=== PATIENT | female | born 1975 | race Caucasian/White ===

== ENCOUNTER 2017-10-28 13:27 | Inpatient (IN) | payer SELFPAY ==
[~2017-10-28] VITALS: Ht 175.3 cm; Wt 108.4 kg
[2017-10-28 13:31] VITALS: BP 206/112
--- NOTE | 2017-10-28 13:41 | NUR ---
PT AMBULATED TO BED 1.
--- NOTE | 2017-10-28 13:45 | NUR ---
41F BIB STEP MOM C/O NON PRODUCTIVE COUGH, MID-ANTERIOR CHEST PAIN, HEADACHE AND MID BACK PAIN X LAST NIGHT. HX: HTN. PT STATED QUIT SMOKING 1 MO & DID NOT TAKE ANY MED FOR HTN X 5 YEARS.DENIES N/V/D; SKIN IS PINK/WARM/DRY; AAOX4 WITH EVEN AND STEADY GAIT; LUNGS CLEAR BL; HR EVEN AND REGULAR; PT DENIES ANY FEVER, CP, SOB, OR COUGH AT THIS TIME; PATIENT STATES PAIN OF 9/10 AT THIS TIME. PATIENT POSITIONED FOR COMFORT; HOB ELEVATED; BEDRAILS UP X2; BED DOWN. ER MD MADE AWARE OF PT STATUS.
[2017-10-28] MEDS ORDERED: ASPIRIN 325 MG TAB PO ONE (14:15)
[2017-10-28] MEDS ORDERED: hydrALAZINE 20 MG/ML VIAL IVP ONE (14:15)
[2017-10-28] MEDS ORDERED: IBUPROFEN 800 MG TAB PO ONE (14:15)
--- NOTE | 2017-10-28 14:25 | NUR ---
LAB AT BEDSIDE.
[2017-10-28 14:42] LABS: BASOPHILS # (AUTO) 0.1 K/uL (0.00-0.22); BASOPHILS % (AUTO) 1.4 % (0.0-2.0); EOSINOPHILS # (AUTO) 0.1 K/uL (0-0.4); EOSINOPHILS % (AUTO) 0.8 % (0.0-4.0); HEMATOCRIT 25.9 % (36-48); HEMOGLOBIN 7.1 g/dL (12.0-16.0); LYMPHOCYTES % (AUTO) 27.4 % (20.5-51.1); MEAN CORPUSCULAR HEMOGLOBIN 17 pg (27-31); MEAN CORPUSCULAR HGB CONC 28 g/dL (33-37); MEAN CORPUSCULAR VOLUME 60 fL (80-94); MONOCYTES # (AUTO) 0.7 K/uL (0.8-1.0); NEUTROPHILS # (AUTO) 4.5 K/uL (1.8-7.7); NEUTROPHILS % (AUTO) 61.4 % (42.2-75.2); PLATELET COUNT (AUTO) 194 K/uL (140-450); RED BLOOD CELL COUNT(AUTO) 4.32 MIL/uL (4.20-5.40); RED CELL DISTRIBUTION WIDTH 20.7 % (11.6-13.7); WHITE BLOOD COUNT (AUTO) 7.4 K/uL (4.8-10.8)
[2017-10-28 14:47] LABS: ANION GAP 12.5 (8-16); CARBON DIOXIDE 24.5 mmol/L (21-32); CREATININE 0.8 mg/dL (0.6-1.3)
[2017-10-28 14:53] LABS: ALBUMIN 3.2 g/dL (3.4-5.0); TOTAL BILIRUBIN 0.9 mg/dL (0.0-1.0)
--- NOTE | 2017-10-28 15:12 | NUR ---
[facility] CALLED BACK TO PROVIDE ADMITTING BED.
[2017-10-28 16:00] VITALS: BP 128/89
--- NOTE | 2017-10-28 16:09 | NUR ---
Patient will be admitted to care of DR PONCE. Admited to TELE. Will go to [id number]. Belongings list completed. Report to MARY JANE LANDA.
[2017-10-28] MEDS: NACL 0.9% 1,000 ML IV SCH (16:10)
[2017-10-28] MEDS ORDERED: NITROGLYCERIN 0.4 MG TAB SL PRN (16:10)
--- NOTE | 2017-10-28 16:10 | NUR ---
RECEIVED PT REPORT FROM ER NURSE. PT IS AMB, AWAKE, ALERT, OX4. PT DENIES ANY PAIN, NAUSEA AND VOMITING AT THIS TIME. PT C/O HEADACHE. WILL ADMINISTER TYLENOL LATER. PT STATED SHE HAD SOB AND FEEL TIGHTNESS OVER THE CHEST LAST NIGHT, HOWEVER, NO COMPLAINT AT THIS TIME. UPDATED BOARD, ORIENT PT TO ROOM. CALL LIGHT WITHIN REACH. PT IS ON TELE MONITOR. IV NOTED THE THE RIGHT HAND 20G. SAFETY PRECAUTIONS MET, WILL CONTINUE TO MONITOR.
--- NOTE | 2017-10-28 16:30 | NUR ---
ASSESSMENT DONE. MEDICAL HX TAKEN.
[2017-10-28] MEDS ORDERED: LISINOPRIL 5 MG TAB PO SCH ×2 (17:15→18:40)
[2017-10-28] MEDS ORDERED: ATORVASTATIN 20 MG TAB PO SCH (17:15)
[2017-10-28] MEDS: FERROUS SULFATE 325 MG TABEC PO SCH (17:15)
[2017-10-28] MEDS ORDERED: ASCORBIC ACID 500 MG TAB PO SCH (17:15)
[2017-10-28] MEDS: ACETAMINOPHEN 325 MG TAB PO PRN (17:19)
--- NOTE | 2017-10-28 17:30 | NUR ---
SCD PLACED ON PT. PT TOLERATED WELL.
[2017-10-28 18:11] LABS: PROTHROMBIN TIME 11.7 secs (10.8-13.4)
[2017-10-28 18:13] LABS: FREE T4 (FREE THYROXINE) 0.97 ng/dL (0.76-1.46); THYROID STIMULATING HORMONE 4.91 uIU/mL (0.34-3.74)
[2017-10-28] MEDS: FERRIC GLUCONATE 125 MG in NACL 0.9% 100 ML IV SCH (18:19)
--- NOTE | 2017-10-28 19:00 | NUR ---
BP 141/73, HR 74 LISINOPRIL WAS ADMINISTERED
--- NOTE | 2017-10-28 19:30 | NUR ---
ENDORSED PT TO ASSEMBLER TRACTOR RN. PT IN STABLE CONDITION.
--- NOTE | 2017-10-28 19:31 | NUR ---
RECEIVED REPORT FROM DAY NURSE CORDELL RN, PT IN STABLE CONDITION. PT IS AAOX4, ON ROOM AIR. NO S/S OF DISTRESS NOTED. IV TO R HAND 20G, PATENT AND INTACT, INFUSING WELL. SKIN IS WARM AND DRY TO TOUCH, INTACT. RR EVEN/UNLABORED. INITIAL ASSESSMENT COMPLETED, PLAN OF CARE DISCUSSED WITH PT, VERBALIZED UNDERSTANDING. ALL SAFETY PRECAUTIONS MET, CALL LIGHT WITHIN REACH, WILL CONTINUE TO MONITOR
[2017-10-28 20:00] VITALS: BP 157/86
--- NOTE | 2017-10-28 20:15 | NUR ---
ASKED DR. JOHNS FOR SOMETHING FOR PT TO SLEEP, PT STATES SHE IS WANTING TO SLEEP BUT CAN'T.
[2017-10-28] MEDS: METOPROLOL 25 MG TAB PO SCH (20:41)
[2017-10-28] MEDS ORDERED: ZOLPIDEM 5 MG TAB PO PRN (21:00)
[2017-10-29] VITALS (8 sets, daily range): BP systolic 148–196; BP diastolic 83–113
[2017-10-29] MEDS: NACL 0.9% 1,000 ML IV SCH ×3 (02:10→23:08)
[2017-10-29 06:49] LABS: HEMATOCRIT 26.8 % (36-48); HEMOGLOBIN 7.3 g/dL (12.0-16.0); MEAN CORPUSCULAR HEMOGLOBIN 16 pg (27-31); MEAN CORPUSCULAR HGB CONC 27 g/dL (33-37); MEAN CORPUSCULAR VOLUME 61 fL (80-94); PLATELET COUNT (AUTO) 223 K/uL (140-450); RED BLOOD CELL COUNT(AUTO) 4.44 MIL/uL (4.20-5.40); RED CELL DISTRIBUTION WIDTH 21.7 % (11.6-13.7); WHITE BLOOD COUNT (AUTO) 8.5 K/uL (4.8-10.8)
[2017-10-29 07:00] LABS: ANION GAP 13.2 (8-16); CARBON DIOXIDE 23.7 mmol/L (21-32); CREATININE 0.8 mg/dL (0.6-1.3); POTASSIUM 3.9 mmol/L (3.5-5.1)
--- NOTE | 2017-10-29 07:00 | NUR ---
IV NO LONGER PATENT AND FLUSHING. NEW IV STARTED IN R FA 20G BY LAM RN, PT TOLERATED WELL, FLUSHING WELL.
[2017-10-29 07:08] LABS: EOSINOPHILS % (MANUAL) 2 % (0-4); LYMPHOCYTES % (MANUAL) 25 % (20-46); MONOCYTES % (MANUAL) 6 % (5-12)
[2017-10-29 07:27] LABS: PHOSPHORUS 3.9 mg/dL (2.5-4.9)
--- NOTE | 2017-10-29 07:33 | NUR ---
REPORT GIVEN TO DAY NURSE FOR CONTINUITY OF CARE, PT IN STABLE CONDITION. NO S/S OF DISTRESS NOTED
--- NOTE | 2017-10-29 07:34 | NUR ---
REPORT RECEIVED FROM ASSISTANT MANAGER OF OPERATIONS NURSE, PT RESTING QUIETLY IN NAD ON RA, AROUSES EASILY, SKIN WARM DRY COLOR WNL, DENIES CHEST PAIN OR SOB, C/O HANLEY, WILL GIVE TYLENOL, PLAN OF CARE REVIEWED, CALL SHANNON WITHIN REACH, SIDE RAILSUP, WILL CONTINUE TO MONITOR.
[2017-10-29] MEDS: ACETAMINOPHEN 325 MG TAB PO PRN (08:25)
[2017-10-29] MEDS: FERROUS SULFATE 325 MG TABEC PO SCH ×3 (08:26→16:22)
[2017-10-29] MEDS: ASPIRIN 81 MG TAB.CHEW PO SCH (08:26)
[2017-10-29] MEDS: DOCUSATE 100 MG/10 ML UDC PO SCH (08:26)
[2017-10-29] MEDS: ATORVASTATIN 20 MG TAB PO SCH (08:27)
[2017-10-29] MEDS: METOPROLOL 25 MG TAB PO SCH ×2 (08:27→21:18)
[2017-10-29] MEDS: ASCORBIC ACID 500 MG TAB PO SCH (08:28)
[2017-10-29] MEDS: PANTOPRAZOLE 40 MG TABEC PO SCH (08:28)
--- NOTE | 2017-10-29 08:34 | NUR ---
AM MEDS GIVEN, PT HARDEEP WELL, ALSO GIVEN TYLENOL FOR HANLEY, PT SITTING UP EATING BREAKFAST NOW, WILL CONTINUE TO MONITOR.
[2017-10-29] MEDS ORDERED: LISINOPRIL 5 MG TAB PO SCH ×2 (09:00→17:15)
[2017-10-29] MEDS ORDERED: LISINOPRIL 20 MG TAB PO SCH ×2 (09:00)
[2017-10-29] MEDS ORDERED: VENLAFAXINE 37.5 MG TAB PO SCH (09:42)
--- NOTE | 2017-10-29 10:05 | NUR ---
PT TO RADIOLOGY FOR CT.
[2017-10-29 10:12] LABS: FOLIC ACID 17.2 ng/mL (>3.0)
--- NOTE | 2017-10-29 10:43 | NUR ---
ECHO AT BEDSIDE.
--- NOTE | 2017-10-29 12:20 | NUR ---
PT SITTING UP IN BED, TALKING WITH AT BEDSIDE, RESP EVEN UNLABORED, APPEARS IN NAD, DENIES PAIN OR DISCOMFORT, WATER PROVIDED REQUESTED, DENIES ANY OTHER NEEDS, WILL CONTINUE TO MONITOR.
--- NOTE | 2017-10-29 14:50 | NUR ---
PT SITTING UP TALKING WITH VISITORS, PLAN OF CARE DISCUSSED, PT VERBALIZED FULL UNDERSTANDING, PT C/O INTERMITTENT HANLEY, BUT DECLINED OFFER OF PAIN MED, PT REMAINS ON SEARCH DIRECTOR, AT BEDSIDE WILL CONTINUE TO MONITOR.
--- NOTE | 2017-10-29 15:29 | NUR ---
PATIENT HAS BEEN SCREENED AND CATEGORIZED MODERATE NUTRITION RISK. PATIENT WILL BE SEEN WITHIN 3-5 DAYS OF ADMISSION. 10/31/17 - 11/02/[address]
[2017-10-29] MEDS: IBUPROFEN 600 MG TAB PO PRN (16:22)
--- NOTE | 2017-10-29 16:22 | NUR ---
MEDICATED FOR HANLEY WITH IBUPROFEN AT THIS TIME.
[2017-10-29] MEDS ORDERED: hydrALAZINE 20 MG/ML VIAL IVP PRN ×2 (17:35→18:45)
--- NOTE | 2017-10-29 17:40 | NUR ---
PT REPORTS HANLEY IS NOW RESOLVED, BP RECHECKED, 185/96, REPEATED WITH SAME READING, DR SAUCEDA MADE AWARE, HYDRALAZINE ONE TIME DOSE TO BE ORDERED. PT SMILING IN NAD, WILL CONTINUE TO MONITOR.
[2017-10-29] MEDS: FERRIC GLUCONATE 125 MG in NACL 0.9% 100 ML IV SCH (18:36)
[2017-10-29] MEDS ORDERED: hydrALAZINE 20 MG/ML VIAL IVP SCH (18:52)
--- NOTE | 2017-10-29 19:03 | NUR ---
IV HYDRALAZINE GIVEN FOR INCREASED BP, WILL ENDORSE TO ONCOMING SHIFT NURSE FOR BP RE-CHECK.
--- NOTE | 2017-10-29 19:22 | NUR ---
REPORT GIVEN TO POWER TRANSFORMER REPAIR SUPERVISOR NURSE, PT IN STABLE CONDITION.
--- NOTE | 2017-10-29 19:25 | NUR ---
RECEIVED PT IN STABLE CONDITION FROM AM NURSE. AWAKE,ALERT AND ORIENTED X4. AMBULATORY. ON TELE MONITOR. NO C/O ANY DISCOMFORT /PAIN AT THIS TIME. WITH IVF INFUSING WELL , FERRLECIT IV ONGOING IN RT HAND #20. CLEAR AND PATENT. PLAN OF CARE DISCUSSED AND VERBALIZED UNDERSTANDING. BED ON LOW POSITION, CALL LIGHT PLACED WITHIN EASY REACH. WILL CONTINUE TO MONITOR.
[2017-10-29] MEDS: VENLAFAXINE 37.5 MG TAB PO SCH (20:23)
[2017-10-29] MEDS ORDERED: ZOLPIDEM 5 MG TAB PO PRN (20:25)
--- NOTE | 2017-10-29 20:30 | NUR ---
BLOOD PRESSURE STILL ELEVATED AFTER THE HYDRALAZINE IVP. CALLED DR. JOHNS. MADE HIM AWARE. WILL DO SOME CHANGES ON THE ORDERS.
--- NOTE | 2017-10-29 21:20 | NUR ---
PT C/O INSOMNIA. GIVEN AMBIEN 10MG PO NEW ORDER .
--- NOTE | 2017-10-29 23:12 | NUR ---
PT IS AWAKE, SHE SAID SHE HARDLY GET SLEEP EVEN AFTER THE AMBIEN. LOOK RESTLESS. VITAL SIGNS TAKEN, BP 196/113 HR 71 WITH O2 SAT 965 ,RESP-20. AFEBRILE. DR. JOHNS MADE AWARE. WILL CHECK THE PRN MEDS FOR BP .
[2017-10-29] MEDS ORDERED: LORazepam 2 MG/ML VIAL IVP PRN (23:15)
[2017-10-29] MEDS: hydrALAZINE 20 MG/ML VIAL IVP PRN (23:40)
--- NOTE | 2017-10-30 00:40 | NUR ---
CHECKED ON PT. AWAKE, STILL ANXIOUS ALTHOUGH BP DOWN TO 162/97 HR -70. WILL MEDICATE WITH ATIVAN 1MG IVP ORDERED.
--- NOTE | 2017-10-30 01:04 | NUR ---
IV ACCESS RT FA #[id number]. INFILTRATED.SWOLLEN . DISCONTINUED. STARTED ANEW IV ACCESS ON RT HAND #22. CLEAR AND PATENT.
--- NOTE | 2017-10-30 02:20 | NUR ---
MADE ROUNDS. PT ASLEEP. NO S/S OF ANY DISCOMFORT NOTED.
[2017-10-30 04:55] VITALS: BP 172/101
--- NOTE | 2017-10-30 05:00 | NUR ---
CALLED DR. JOHNS, MADE AWARE ABOUT THE BP 172/101. HE SAID TO HOLD APRESOLINE IV . PT NO C/O PAIN. HE SAID TO RECHECKED THE BP AGAIN AFTER 15-20 MINUTES.
[2017-10-30 05:26] VITALS: BP 186/106
[2017-10-30] MEDS: hydrALAZINE 20 MG/ML VIAL IVP PRN ×2 (05:55→12:55)
--- NOTE | 2017-10-30 05:55 | NUR ---
BLOOD PRESSURE ELEVATED 186/106 ,HR -68. PRN APRESOLINE 10 MG IVP GIVEN. WILL CONTINUE TO MONITOR.
--- NOTE | 2017-10-30 06:55 | NUR ---
LATEST BP AFTER THE APRESOLINE IVP 162/77, HR -72. PT RESTING IN BED.
[2017-10-30 07:11] LABS: BASOPHILS # (AUTO) 0.2 K/uL (0.00-0.22); BASOPHILS % (AUTO) 1.9 % (0.0-2.0); EOSINOPHILS # (AUTO) 0.1 K/uL (0-0.4); EOSINOPHILS % (AUTO) 1.4 % (0.0-4.0); HEMATOCRIT 26.7 % (36-48); HEMOGLOBIN 7.4 g/dL (12.0-16.0); LYMPHOCYTES # (AUTO) 1.9 K/uL (2.5-16.5); LYMPHOCYTES % (AUTO) 17.6 % (20.5-51.1); MEAN CORPUSCULAR HEMOGLOBIN 17 pg (27-31); MEAN CORPUSCULAR HGB CONC 28 g/dL (33-37); MEAN CORPUSCULAR VOLUME 61 fL (80-94); MONOCYTES # (AUTO) 0.8 K/uL (0.8-1.0); MONOCYTES % (AUTO) 7.7 % (1.7-9.3); NEUTROPHILS # (AUTO) 7.6 K/uL (1.8-7.7); NEUTROPHILS % (AUTO) 71.4 % (42.2-75.2); PLATELET COUNT (AUTO) 184 K/uL (140-450); RED BLOOD CELL COUNT(AUTO) 4.39 MIL/uL (4.20-5.40); RED CELL DISTRIBUTION WIDTH 21.1 % (11.6-13.7); WHITE BLOOD COUNT (AUTO) 10.6 K/uL (4.8-10.8)
--- NOTE | 2017-10-30 07:30 | NUR ---
ENDORSED PT IN STABLE CONDITION TO AM NURSE.
[2017-10-30 08:00] VITALS: BP 171/96
[2017-10-30] MEDS: DOCUSATE 100 MG/10 ML UDC PO SCH (08:45)
[2017-10-30] MEDS: ATORVASTATIN 20 MG TAB PO SCH (08:45)
[2017-10-30] MEDS: ASPIRIN 81 MG TAB.CHEW PO SCH (08:45)
[2017-10-30] MEDS: LISINOPRIL 20 MG TAB PO SCH ×2 (08:46→20:36)
[2017-10-30] MEDS: PANTOPRAZOLE 40 MG TABEC PO SCH (08:46)
[2017-10-30] MEDS: ASCORBIC ACID 500 MG TAB PO SCH (08:46)
[2017-10-30] MEDS: FERROUS SULFATE 325 MG TABEC PO SCH ×3 (08:47→17:32)
[2017-10-30] MEDS: VENLAFAXINE 37.5 MG TAB PO SCH (08:47)
[2017-10-30] MEDS: IBUPROFEN 600 MG TAB PO PRN (08:47)
[2017-10-30] MEDS: METOPROLOL 25 MG TAB PO SCH ×2 (08:47→20:36)
[2017-10-30 09:36] LABS: ANION GAP 14.9 (8-16); CREATININE 0.7 mg/dL (0.6-1.3); POTASSIUM 3.9 mmol/L (3.5-5.1)
[2017-10-30] MEDS ORDERED: APAP/BUTAL/CAFF 325/50/40 MG 1 TAB PO PRN (10:20)
[2017-10-30] MEDS ORDERED: ONDANSETRON 4 MG/2 ML VIAL IVP PRN (10:25)
[2017-10-30 12:40] VITALS: BP 183/90
[2017-10-30] MEDS ORDERED: ZOLPIDEM 5 MG TAB PO PRN (15:10)
[2017-10-30] MEDS ORDERED: LORazepam 0.5 MG TAB PO PRN (15:20)
[2017-10-30] MEDS ORDERED: amLODIPine 5 MG TAB PO SCH (15:30)
[2017-10-30 16:06] VITALS: BP 149/85
--- NOTE | 2017-10-30 17:00 | NUR ---
patient upset US has not been done. patient threatening to leave AMA. Md notified and aware. Md to speak with patient. US called to confirm time of procedure.
[2017-10-30] MEDS: CYCLOBENZAPRINE 10 MG TAB PO SCH (17:32)
--- NOTE | 2017-10-30 19:25 | NUR ---
RECEIVED FROM AM RN IN BED AWAKE AND ALERT WATCHING TV. NO COMPLAINT OF ANY PAIN AT THIS TIME. NO SOB. CALL LIGHT WITH IN REACH AND CARE PLANS FOR THE NIGHT DISCUSSED WITH PT. A/O X 4. ABLE TO VERBALIZE SIMPLE NEEDS WELL. NEEDS WILL BE ANTICIPATED AND WILL BE MET. DX. OF CHEST PAIN. PMH OF HTN . PT. VERBALIZE SHE WASN'T TAKING ANY HTN MEDICATION FOR 5 YEARS NOW .
--- NOTE | 2017-10-30 19:33 | NUR ---
end of shift patient in stable condition. report given to oncoming nurse.
[2017-10-30 20:37] VITALS: BP 131/80
--- NOTE | 2017-10-30 22:32 | NUR ---
PT. REQUESTED FOR SLEEPING PILL. A/O X 4. VERBALIZES WELL. CALL LIGHT WITH IN REACH. MEDICATED ORDERED. NO SOB. NO FURTHER COMPLAINTS DONE.
[2017-10-31 00:58] VITALS: BP 144/99
--- NOTE | 2017-10-31 04:41 | NUR ---
SLEEPING WELL. CALL LIGHT WITH IN REACH AND ABLE TO VERBALIZE NEEDS WELL.
--- NOTE | 2017-10-31 07:15 | NUR ---
RECEIVED PATIENT REPORT AT BEDSIDE. PT AWAKE AO X4. NO S/S OF DISTRESS. PATIENT ON ROOM AIR. NO SOB. NO COMPLAINTS OF PAIN. IV LINE CAME OUT LAST NIGHT. BED LOWERED WITH CALL LIGHT WITHIN REACH. WILL COUNTINUE TO MONITOR.
[2017-10-31 08:00] VITALS: BP 181/98
--- NOTE | 2017-10-31 08:00 | NUR ---
PATIENT SEEN BY DR PONCE DURING ROUNDS. AWARE OF PATIENT'S BP.
[2017-10-31] MEDS: DOCUSATE 100 MG/10 ML UDC PO SCH (08:30)
[2017-10-31] MEDS: METOPROLOL 25 MG TAB PO SCH ×2 (08:31→20:30)
[2017-10-31] MEDS: LISINOPRIL 20 MG TAB PO SCH ×2 (08:31→20:31)
[2017-10-31] MEDS: ASCORBIC ACID 500 MG TAB PO SCH (08:31)
[2017-10-31] MEDS: PANTOPRAZOLE 40 MG TABEC PO SCH (08:32)
[2017-10-31] MEDS: CYCLOBENZAPRINE 10 MG TAB PO SCH ×3 (08:33→18:00)
[2017-10-31] MEDS: FERROUS SULFATE 325 MG TABEC PO SCH ×3 (08:33→18:00)
[2017-10-31] MEDS ORDERED: SERTRALINE 50 MG TAB PO SCH (09:00)
[2017-10-31] MEDS ORDERED: amLODIPine 5 MG TAB PO SCH (09:00)
--- NOTE | 2017-10-31 09:00 | NUR ---
ADMINISTERED DUE MEDICATIONS. PATIENT TOLERATED WELL.
[2017-10-31] MEDS ORDERED: ACETAMINOPHEN EXTRA STRENGTH 500 MG TAB PO SCH (09:13)
[2017-10-31] MEDS ORDERED: LORATADINE 10 MG TAB PO SCH (09:13)
[2017-10-31 10:59] LABS: BASOPHILS # (AUTO) 0.1 K/uL (0.00-0.22); BASOPHILS % (AUTO) 1.4 % (0.0-2.0); EOSINOPHILS # (AUTO) 0.1 K/uL (0-0.4); EOSINOPHILS % (AUTO) 1.3 % (0.0-4.0); HEMATOCRIT 27.1 % (36-48); HEMOGLOBIN 7.5 g/dL (12.0-16.0); LYMPHOCYTES # (AUTO) 1.4 K/uL (2.5-16.5); LYMPHOCYTES % (AUTO) 13.1 % (20.5-51.1); MEAN CORPUSCULAR HEMOGLOBIN 17 pg (27-31); MEAN CORPUSCULAR HGB CONC 28 g/dL (33-37); MEAN CORPUSCULAR VOLUME 61 fL (80-94); MONOCYTES # (AUTO) 0.8 K/uL (0.8-1.0); MONOCYTES % (AUTO) 7.1 % (1.7-9.3); NEUTROPHILS # (AUTO) 8.2 K/uL (1.8-7.7); NEUTROPHILS % (AUTO) 77.1 % (42.2-75.2); PLATELET COUNT (AUTO) 200 K/uL (140-450); RED BLOOD CELL COUNT(AUTO) 4.43 MIL/uL (4.20-5.40); RED CELL DISTRIBUTION WIDTH 20.9 % (11.6-13.7); WHITE BLOOD COUNT (AUTO) 10.6 K/uL (4.8-10.8)
--- NOTE | 2017-10-31 13:20 | NUR ---
BLOOD TRANSFUSION INITIATED. PT AWAKE AND ALERT. NO COMPLAINTS OF DISTRESS AT THIS TIME
--- NOTE | 2017-10-31 13:50 | NUR ---
BLOOD TRANSFUSION IN PROGRESS. PATIENT AWAKE WITH FAMILY MEMBERS AT BEDSIDE. NO S/S OF DISTRESS. WILL CONTINUE TO MONITOR.
[2017-10-31] MEDS ORDERED: FUROSEMIDE 20 MG/2 ML VIAL IVP SCH (15:00)
[2017-10-31 16:08] VITALS: BP 155/96
[2017-10-31] MEDS ORDERED: ISOSORBIDE DINITRATE 10 MG TAB PO SCH (17:15)
[2017-10-31] MEDS ORDERED: METO25TA PO (17:22)
[2017-10-31] MEDS ORDERED: SERT-146 PO (17:22)
[2017-10-31] MEDS ORDERED: LISI-420 PO (17:22)
[2017-10-31] MEDS ORDERED: ISOS10TA9 PO (17:22)
[2017-10-31] MEDS ORDERED: VITC500 PO (17:22)
[2017-10-31] MEDS ORDERED: IBUP-2213 PO (17:22)
[2017-10-31] MEDS ORDERED: FERR-18 PO (17:22)
[2017-10-31] MEDS ORDERED: CYCL10TA14 PO (17:22)
--- NOTE | 2017-10-31 17:30 | NUR ---
BLOOD TRANSFUSION DONE. NO S/S OF DISTRESS.
--- NOTE | 2017-10-31 19:20 | NUR ---
PT REPORT GIVEN AT BEDSIDE TO NIGHTSHIFT NURSE. PT ENDORSED IN STABLE CONDITION.
--- NOTE | 2017-10-31 19:21 | NUR ---
RECEIVED PT FROM DAY SHIFT NURSE NICO-RN. PT AOX4 WITH FAMILY IN ROOM. NO S/S OF DISTRESS. PATIENT ON ROOM AIR. NO SOB. NO COMPLAINTS OF PAIN. IV ON RIGHT FA #20G SALINE LOCK. BED IN LOWEST POSITION. CALL LIGHT WITHIN REACH. WILL CONTINUE TO MONITOR.
[2017-10-31 19:25] LABS: BASOPHILS # (AUTO) 0.3 K/uL (0.00-0.22); BASOPHILS % (AUTO) 3.2 % (0.0-2.0); EOSINOPHILS # (AUTO) 0.1 K/uL (0-0.4); EOSINOPHILS % (AUTO) 1.1 % (0.0-4.0); HEMATOCRIT 29.2 % (36-48); HEMOGLOBIN 8.1 g/dL (12.0-16.0); LYMPHOCYTES # (AUTO) 2.9 K/uL (2.5-16.5); LYMPHOCYTES % (AUTO) 29.2 % (20.5-51.1); MEAN CORPUSCULAR HEMOGLOBIN 17 pg (27-31); MEAN CORPUSCULAR HGB CONC 28 g/dL (33-37); MEAN CORPUSCULAR VOLUME 63 fL (80-94); MONOCYTES % (AUTO) 10.1 % (1.7-9.3); NEUTROPHILS # (AUTO) 5.7 K/uL (1.8-7.7); NEUTROPHILS % (AUTO) 56.4 % (42.2-75.2); PLATELET COUNT (AUTO) 218 K/uL (140-450); RED BLOOD CELL COUNT(AUTO) 4.65 MIL/uL (4.20-5.40); RED CELL DISTRIBUTION WIDTH 23.5 % (11.6-13.7)
--- NOTE | 2017-10-31 20:32 | NUR ---
MEDICATIONS TOLERATED WELL. NO S/S OF RESPIRATORY DISTRESS OR DISCOMFORT NOTED. BED IN LOWEST POSITION. CALL LIGHT WITHIN REACH. WILL CONTINUE TO MONITOR.
--- NOTE | 2017-10-31 21:45 | NUR ---
DISCHARGE ORDER RECEIVED.
[2017-10-31 22:38] VITALS: BP 150/83
--- NOTE | 2017-10-31 23:15 | NUR ---
PT WAS DISCHARGED. IV WAS REMOVED, INTACT. ID BANDS WERE REMOVED. PT WAS WHEELED OUT TO THE LOBBY WERE FAMILY MEMBER PROVIDED TRANSPORTATION HOME. PT STABLE AT THIS TIME.
[2017-11-01] MEDS ORDERED: ISOSORBIDE DINITRATE 10 MG TAB PO SCH (09:00)
== END 2017-10-31 23:15 | disposition home or self-care (01) | DRG 304 ==
LOC: MED 13:27 → MTU 15:01
PROVIDERS: ADMIT Family Medicine Sports Medicine; ATTEND Family Medicine Sports Medicine
PROC: 30233N1 Transfusion of Nonautologous Red Blood Cells into Peripheral Vein, Percutaneous Approach (ICD-10-PCS; principal; 2017-10-31)
DX: I16.0 Hypertensive urgency (principal); I50.23 Acute on chronic systolic (congestive) heart failure; E44.0 Moderate protein-calorie malnutrition; I11.0 Hypertensive heart disease with heart failure; E83.51 Hypocalcemia; E66.01 Morbid (severe) obesity due to excess calories; F34.1 Dysthymic disorder; F41.0 Panic disorder [episodic paroxysmal anxiety]; F15.90 Other stimulant use, unspecified, uncomplicated; D64.9 Anemia, unspecified; G43.909 Migraine, unspecified, not intractable, without status migrainosus; F41.9 Anxiety disorder, unspecified; N92.0 Excessive and frequent menstruation with regular cycle; E02 Subclinical iodine-deficiency hypothyroidism; F32.9 Major depressive disorder, single episode, unspecified; F43.10 Post-traumatic stress disorder, unspecified; K21.9 Gastro-esophageal reflux disease without esophagitis; Z83.3 Family history of diabetes mellitus; Z82.49 Family history of ischemic heart disease and other diseases of the circulatory system; Z82.3 Family history of stroke; I25.2 Old myocardial infarction; Z87.891 Personal history of nicotine dependence; Z91.19 Patient's noncompliance with other medical treatment and regimen; Z68.35 Body mass index [BMI] 35.0-35.9, adult
CPT/HCPCS: 36415; 70450; 71045; 80048; 80053; 82150; 82607; 82728; 82746; 83036; 83540; 83690; 83735; 83880; 84100; 84439; 84443; 84479; 84484; 85025; 85045; 85610; 85730; 86886; 86900; 86901; 86920; 87081; 93005; 93976; 96374; 99285; J0360; J1940; J2060; J2916; J7030; P9016; Q0092; Q0163

== ENCOUNTER 2019-12-07 10:13 | Inpatient (IN) | payer OTHER ==
[~2019-12-07] VITALS: Ht 175.3 cm; Wt 104.3 kg
[~2019-12-07 10:13] MED LIST: CYCL10TA14 PO; FERR-18 PO; IBUP-2213 PO; ISOS10TA9 PO; LISI-420 PO; METO25TA PO; SERT-146 PO; VITC500 PO
[2019-12-07 10:14] VITALS: BP 129/95
--- NOTE | 2019-12-07 10:24 | NUR ---
Patient ambulated to bed 12. RN evaluating patient at bedside.
--- NOTE | 2019-12-07 10:30 | NUR ---
44/F C/O GENERALIZED WEAKNESS/FATIGUE, SOB, INTERMITENT MID CHEST PAIN WHILE WALKING/MOVING AROUND X 5 DAYS AFTER LAST MENSTRUAL PERIOD ON NOVEMBER 30. MENSTRUAL CYCLE WAS HEAVY WHICH IS NORMAL FOR HER (NOT HEAVIER THAN USUAL). SOB ASSOCIATED WITH CP AND BOTH SYMPTOMS ARE EXERTIONAL. CP DESCRIBED SHARP. SITTING DOWN/RESTING RELIEVES THE CHEST PAIN AND SOB. DENIES FEVER, DIARRHEA, COUGH. STATES OCCASIONAL NAUSEA WITH EXERTION. STATES HANDS SEEM MORE PALE. AND SYPMTOMS ARE SIMILAR TO PREVIOUS ANEMIA THAT REQUIRED BLOOD TRANSFUSION. MED HX: ANEMIA, HTN, ANXIETY
--- NOTE | 2019-12-07 10:34 | NUR ---
XRAY AT BEDSIDE
--- NOTE | 2019-12-07 10:49 | NUR ---
LABS DRAWN BEDSIDE FROM LAC 20
--- NOTE | 2019-12-07 10:52 | NUR ---
DR WAYNE EVALUATING PT AT BEDSIDE
--- NOTE | 2019-12-07 11:01 | NUR ---
BLOOD DRAW WALKED TO LAB.
--- NOTE | 2019-12-07 11:11 | NUR ---
LAB STATES THEY HAVE THE BLOOD DRAW AND ARE PROCESSING IT NOW.
[2019-12-07 11:14] LABS: BASOPHILS # (AUTO) 0.1 K/uL (0.00-0.22); BASOPHILS % (AUTO) 1.5 % (0.0-2.0); EOSINOPHILS # (AUTO) 0.1 K/uL (0-0.4); EOSINOPHILS % (AUTO) 1.5 % (0.0-4.0); LYMPHOCYTES # (AUTO) 1.7 K/uL (2.5-16.5); LYMPHOCYTES % (AUTO) 19.6 % (20.5-51.1); MEAN CORPUSCULAR HEMOGLOBIN 17 pg (27-31); MEAN CORPUSCULAR HGB CONC 26 g/dL (33-37); MEAN CORPUSCULAR VOLUME 64.1 fL (80-94); MONOCYTES # (AUTO) 0.6 K/uL (0.8-1.0); NEUTROPHILS % (AUTO) 70.4 % (42.2-75.2); PLATELET COUNT (AUTO) 202 K/uL (140-450); RED BLOOD CELL COUNT(AUTO) 2.96 MIL/uL (4.20-5.40); RED CELL DISTRIBUTION WIDTH 22.6 % (11.6-13.7); WHITE BLOOD COUNT (AUTO) 8.5 K/uL (4.8-10.8)
[2019-12-07 11:17] LABS: HEMOGLOBIN 4.9 g/dL (12.0-16.0)
[2019-12-07 11:21] LABS: ANION GAP 17.5 (8-16); CARBON DIOXIDE 20.6 mmol/L (21-32); CREATININE 1.1 mg/dL (0.6-1.3); POTASSIUM 4.1 mmol/L (3.5-5.1)
[2019-12-07] MEDS ORDERED: ORE25 PO (11:41)
[2019-12-07] MEDS ORDERED: HYDROcodone/APAP 5/325 MG 1 TAB TAB PO PRN ×2 (11:55)
[2019-12-07] MEDS ORDERED: ONDANSETRON 4 MG/2 ML VIAL IVP PRN (11:55)
[2019-12-07] MEDS ORDERED: ACETAMINOPHEN 325 MG TAB PO PRN (11:55)
--- NOTE | 2019-12-07 12:00 | NUR ---
LUNCH TRAY DELIVERED TO PATIENT BEDSIDE.
--- NOTE | 2019-12-07 12:57 | NUR ---
PATIENT IS RESTING IN BED, AWAKE AND ALERT. RESP EVEN AND UNLABORED. VSS. ALL NEEDS MET AT THIS TIME.
[2019-12-07 13:32] LABS: THYROID STIMULATING HORMONE 5.76 uIU/mL (0.34-3.74)
--- NOTE | 2019-12-07 14:05 | NUR ---
BLOOD PICKED UP AT LAB
--- NOTE | 2019-12-07 14:05 | NUR ---
FIRST SET OF VITALS OBTAINED FOR PRE-BLOOD TRANSFUSION
--- NOTE | 2019-12-07 14:15 | NUR ---
BLOOD COMPONENTS VERIFIED WITH JAMESON HINTON AT BEDSIDE
--- NOTE | 2019-12-07 14:20 | NUR ---
BLOOD COMPONENTS HAVE BEGAN INFUSING
--- NOTE | 2019-12-07 14:37 | NUR ---
NO FEBRILE REACTION NOTED. VSS. RESP EVEN AND UNLABORED.
[2019-12-07 15:00] VITALS: BP 94/50
--- NOTE | 2019-12-07 15:00 | NUR ---
RECEIVED PT FROM ER NURSE, PT IS AAOX4, WITH IV LINE ON THE RT CA G. 20 AND THE FIRST UNIT OF BLOOD TRANSFUSION IS GOING, PT DENIES PAIN AND NO SIGN OF DISTRESS NOTED, SKIN IS INTACT, V/S TAKE AND IS STABLE AND WILL CONTINUE TO MONITOR PT.
--- NOTE | 2019-12-07 15:06 | NUR ---
Patient will be admitted to [facility]. Admited to MED SURG. Will go to room 120A. Belongings list completed. Report to NAM HINTON.
--- NOTE | 2019-12-07 18:30 | NUR ---
STARTED THE TRANSFUSION OF THE SECOND UNIT OF PACKED RED BLOOD CELL NOW.
[2019-12-07] MEDS: FERROUS SULFATE 325 MG TABEC PO SCH (18:40)
--- NOTE | 2019-12-07 18:40 | NUR ---
PT WAS GIVEN FERROUS SULFATE ORAL TABLET NOW.
--- NOTE | 2019-12-07 19:10 | NUR ---
ENDORSED PT TO EXERCISE INSTRUCTOR NURSE, MARLYN FOR CONTINUITY OF CARE, BLOOD TRANSFUSION STILL GOING.
--- NOTE | 2019-12-07 19:15 | NUR ---
RECEIVED PT IN STABLE CONDITION FROM AM NURSE. MED SURG PT. AWAKE,ALERT AND ORIENTED X4. WITH NO C/O ANY DISCOMFORT NOR PAIN NOTED. ON BLOOD TRANSFUSION AT THIS TIME. INFUSING WELL ON THE LT AC G#20. CLEAR AND PATENT. EDUCATE PT TO CALL IF ANY REACTION NOTED FROM THE BLOOD. FREQ ROUNDS NEEDED. BED ON LOW POSITION. CALL LIGHT PLACED WITHIN EASY REACH. WILL CONTINUE TO MONITOR.
[2019-12-07] MEDS: METOPROLOL 50 MG TAB PO SCH (21:00)
[2019-12-07] MEDS: LISINOPRIL 20 MG TAB PO SCH (21:00)
--- NOTE | 2019-12-07 21:30 | NUR ---
2ND UNIT PRBC TRANSFUSION STATED AT 1830 AND FINISHED @2129.
--- NOTE | 2019-12-07 21:45 | NUR ---
2ND UNIT PRBC TRANSFUSION DONE. NO REACTION NOTED. VITAL SIGNS TAKEN AND RECORDED.
--- NOTE | 2019-12-07 22:00 | NUR ---
TALKED TO DR. GLEZ. MADE AWARE THAT PT JUST FINISHED 2 UNITS PRBC. WITH ORDER TO HAVE CBC AND BMP IN AM
[2019-12-08] VITALS: BP 103/57
--- NOTE | 2019-12-08 00:30 | NUR ---
MADE ROUNDS. ASLEEP. NO S/S OF ANY DISCOMFORT NOR PAIN NOTED.
--- NOTE | 2019-12-08 02:00 | NUR ---
TRINITY ROUNDS. PT SLEEPING WELL. NO S/S OF ANY DISCOMFORT NOTED.
--- NOTE | 2019-12-08 04:00 | NUR ---
ASLEEP. NO S/S OF ANY PAIN NOR DISCOMFORT NOTED. WILL CONTINUE TO MONITOR.
--- NOTE | 2019-12-08 06:16 | NUR ---
PT SLEPT WELL WITH NO C/O ANY DISCOMFORT NOTED DURING THE NIGHT.
--- NOTE | 2019-12-08 07:05 | NUR ---
ENDORSED PT IN STABLE CONDITION TO AM NURSE .
[2019-12-08 07:13] LABS: BASOPHILS # (AUTO) 0.1 K/uL (0.00-0.22); BASOPHILS % (AUTO) 1.1 % (0.0-2.0); EOSINOPHILS # (AUTO) 0.1 K/uL (0-0.4); EOSINOPHILS % (AUTO) 1.2 % (0.0-4.0); HEMATOCRIT 21.9 % (36-48); LYMPHOCYTES # (AUTO) 1.9 K/uL (2.5-16.5); MEAN CORPUSCULAR HEMOGLOBIN 20 pg (27-31); MEAN CORPUSCULAR HGB CONC 29 g/dL (33-37); MEAN CORPUSCULAR VOLUME 68.5 fL (80-94); MONOCYTES # (AUTO) 0.7 K/uL (0.8-1.0); MONOCYTES % (AUTO) 6.3 % (1.7-9.3); NEUTROPHILS # (AUTO) 7.8 K/uL (1.8-7.7); NEUTROPHILS % (AUTO) 73.4 % (42.2-75.2); PLATELET COUNT (AUTO) 162 K/uL (140-450); RED CELL DISTRIBUTION WIDTH 30.9 % (11.6-13.7); WHITE BLOOD COUNT (AUTO) 10.7 K/uL (4.8-10.8)
--- NOTE | 2019-12-08 07:15 | NUR ---
RECEIVED PATIENT FROM DIGITAL INTERN NURSE FOR CONTINUITY OF CARE. PATIENT IS AAOX4. NO SIGNS OF DISTRESS NOTED. RESPIRATIONS EVEN AND UNLABORED, ROOM AIR. VISIBLE CHEST RISE AND FALL NOTED. MED-SURG. ABDOMEN ROUND AND NONTENDER. IV IN THE LEFT AC GAUGE 20, SALINE LOCK. SKIN WARM, DRY, AND INTACT. PATIENT IS AMBULATORY. UNIVERSAL FALL PRECAUTION IN PLACE. FULL CODE. BED IN LOW POSITION. CALL LIGHT IS WITHIN REACH. WILL CONTINUE TO MONITOR.
[2019-12-08 07:29] LABS: HEMOGLOBIN 6.3 g/dL (12.0-16.0)
--- NOTE | 2019-12-08 07:29 | NUR ---
CRITICAL LAB: HGB 6.3. WILL PAGE DR. CAM
[2019-12-08 07:44] LABS: CARBON DIOXIDE 22.4 mmol/L (21-32); CREATININE 0.9 mg/dL (0.6-1.3); POTASSIUM 4.4 mmol/L (3.5-5.1)
[2019-12-08 07:56] LABS: MAGNESIUM 2.1 mg/dL (1.8-2.4); PHOSPHORUS 3.8 mg/dL (2.5-4.9)
[2019-12-08 08:00] VITALS: BP 107/63
[2019-12-08] MEDS: ASCORBIC ACID 500 MG TAB PO SCH (08:18)
[2019-12-08] MEDS: FERROUS SULFATE 325 MG TABEC PO SCH ×3 (08:19→17:05)
[2019-12-08] MEDS: HYDROCHLOROTHIAZIDE 25 MG TAB PO SCH (08:19)
[2019-12-08] MEDS: LISINOPRIL 20 MG TAB PO SCH ×2 (08:19→21:00)
[2019-12-08] MEDS: METOPROLOL 50 MG TAB PO SCH ×2 (08:19→21:00)
[2019-12-08] MEDS: SERTRALINE 50 MG TAB PO SCH (08:19)
--- NOTE | 2019-12-08 08:25 | NUR ---
PAGED DR. CAM
--- NOTE | 2019-12-08 08:25 | NUR ---
GIVEN MORNING MEDICATIONS PO. EXPLAINED MEDICATIONS. PATIENT VERBALIZED UNDERSTANDING. BED IN LOW POSITION. CALL LIGHT IS WITHIN REACH. WILL CONTINUE TO MONITOR
--- NOTE | 2019-12-08 08:31 | NUR ---
PATIENT HAS BEEN SCREENED AND CATEGORIZED MODERATE NUTRITION RISK. PATIENT WILL BE SEEN WITHIN 3-5 DAYS OF ADMISSION. 12/10/19 12/12/[address]
--- NOTE | 2019-12-08 10:10 | NUR ---
Fireworks Maker Note: ERMA attempted to contact patient's daughter Brigida Steiner to complete asssessment [phone]. ERMA left VM. ERMA will follow up. Addendum: 12/09/19 at 0948 by Noe DENIS ERMA attempted to contact Brigida Steiner, but phone number was incorrect. ERMA will follow up.
--- NOTE | 2019-12-08 10:37 | NUR ---
PAGED DR. CAM AGAIN TO REPORT LOW HGB
--- NOTE | 2019-12-08 10:57 | NUR ---
GIVEN TURKEY SANDWICH AND REJI CRACKERS PER PATIENT'S REQUEST.
--- NOTE | 2019-12-08 11:13 | NUR ---
GIVEN FERROUS SULFATE PO. EXPLAINED MEDICATION. PATIENT VERBALIZED UNDERSTANDING. WILL CONTINUE TO MONITOR.
--- NOTE | 2019-12-08 11:20 | NUR ---
DC PLANN[age] YRS OLD PATIENT WAS ADMITTED FROM HOME WITH A DX OF ACUTE CHRONIC ANEMIA H/H WAS 4.9/19.0 ON ADMISSION PATIENT AHS A HX OF CHRONIC ANEMIA, MENORRHAGIA IRON DEFICIENCY ANEMIA HTN ,ANXIETY AND DEPRESSION. TRANSFUSED 2 UNITS PRBC AND H/H 6.9/ 21.9 . PELVIC US SHOWED ANTERIOR UTERINE FIBROID. CONSULTED HOSPITALITY AMBASSADOR WITH DR HERBERT . CM TO FOLLOW Addendum: 12/09/19 at 1126 by Nida Callahan CM DC PLANNING: H/H 7.4/25.6 AFTER 3 UNITS PRBC SEEN BY OBEGYN DR HERBERT CLEARED FOR DISCHARGE AND PLAN FOR ENDOMETRIAL ABLATION ON OUTPATIENT BASIS .DC PLAN F/U APPOINTMENT WITH PCP AND OBGYN .CM TO FOLLOW
--- NOTE | 2019-12-08 11:42 | NUR ---
STILL WAITING FOR DR. CAM'S CALL FOR TO REPORT HGB 6.3
[2019-12-08 13:19] LABS: FERRITIN 6 ng/mL (15 - 150)
--- NOTE | 2019-12-08 13:23 | NUR ---
PAGED DR. CAM AGAIN FOR THE THIRD TIME. WILL WAIT FOR THE CALL BACK
--- NOTE | 2019-12-08 13:40 | NUR ---
DR. CAM MADE A TELEPHONE ORDER FOR 1 UNIT OF PACKED RBC FOR HGB 6.3. WILL CARRY OUT ORDER.
--- NOTE | 2019-12-08 15:03 | NUR ---
DR. CAM MADE ROUNDS.
[2019-12-08 16:00] VITALS: BP 105/86
--- NOTE | 2019-12-08 16:30 | NUR ---
STARTED 1 UNIT OF BLOOD TRANSFUSION. PRE TRANSFUSION VS: 97.9, HR 56, RESP 16, BP 104/68, DENIES PAIN.
--- NOTE | 2019-12-08 17:05 | NUR ---
GIVEN FERROUS SULFATE PO. EXPLAINED MEDICATION. WILL CONTINUE TO MONITOR
--- NOTE | 2019-12-08 17:26 | NUR ---
NO SIGNS OF TRANSFUSIONS REACTIONS. PATIENT DENIES ANY ITCHINESS OR SOB. WILL CONTINUE TO MONITOR
--- NOTE | 2019-12-08 18:44 | NUR ---
NO SIGNS OF BLOOD TRANSFUSION REACTION. PATIENT IS ON THE PHONE. DENIES ANY SOB OR ITCHINESS. WILL CONTINUE TO MONITOR.
--- NOTE | 2019-12-08 19:16 | NUR ---
ENDORSED PATIENT TO THE CABLE SPLICER ASSISTANT NURSE FOR CONTINUITY OF CARE. BLOOD IS STILL TRANSFUSING. PATIENT IS IN STABLE CONDITION.
--- NOTE | 2019-12-08 19:20 | NUR ---
RECEIVED BEDSIDE REPORT FROM AM SHIFT RN FOR PT'S CONTINUITY OF CARE. PT IS AAOX4, AMBULATORY, ON ROOM AIR, HAS LEFT AC 20G CURRENTLY TRANSFUSING 1 UNIT OF BLOOD STARTED AT 1645, PT DENIES ANY PAIN OR DISCOMFORT. EXPLAINED TO PT THE PRIVATE BRANCH EXCHANGE OPERATOR ROUTINE, PT VERBALIZED UNDERSTANDING. DISCUSSED WITH PT THE SAFETY MEASURES, PT VERBALIZED UNDERSTANDING. SAFETY MEASURES AND CALL LIGHT IS WITHIN REACH. WILL MONITOR PT THROUGHOUT SHIFT.
--- NOTE | 2019-12-08 20:00 | NUR ---
BLOOD TRANSFUSION FINISHED AT 1945. VS CHECKED AND CHARTED. PT DENIES ANY PAIN OR DISCOMFORT. PT EDUCATION GIVEN. PT AWARE AND FAMILIAR WITH BLOOD TRANSFUSION PROCESS AND PROCEDURE. WILL CONTINUE TO MONITOR PT.
--- NOTE | 2019-12-08 21:20 | NUR ---
PT REFUSED SCHEDULED MEDICATIONS. BP 110/53. PT EDUCATION GIVEN RE: MEDICATIONS AND SAFETY PRECAUTION. PT STATES BASELINE BP AROUND 140'S SYSTOLIC. PT MADE COMFORTABLE AND PT'S NEEDS MET. WILL CONTINUE TO MONITOR PT.
--- NOTE | 2019-12-08 23:00 | NUR ---
PT ASLEEP WITH NO SIGNS OF DISTRESS. WILL CONTINUE TO MONITOR PT.
[2019-12-09] VITALS: BP 105/54
--- NOTE | 2019-12-09 01:35 | NUR ---
MADE ROUNDS. PT AWAKE, ON THE PHONE, DENIES ANY PAIN OR NEEDS. REMINDED PT TO USE CALL LIGHT WHEN NEEDED. PT VERBALIZED UNDERSTANDING. WILL CONTINUE TO MONITOR PT.
--- NOTE | 2019-12-09 04:00 | NUR ---
MADE ROUNDS. PT ASLEEP WITH NO SIGNS OF DISTRESS. WILL CONTINUE TO MONITOR PT.
--- NOTE | 2019-12-09 06:30 | NUR ---
PT LYING DOWN, WOKE UP FROM NOISE FROM THE NEXT BED PATIENT. PT DENIES PAIN OR DISCOMFORT. NO NEEDS STATED AT THIS TIME. PT SEEN BY DR. HERBERT AT BEDSIDE. WILL ENDORSE PT TO AM SHIFT RN FOR PT'S CONTINUITY OF CARE.
--- NOTE | 2019-12-09 07:15 | NUR ---
RECEIVED REPORT FROM NIGHT NURSE PT IS AWAKE AND ALERT IN STABLE CONDITION ON ROOM AIR AND AMBULATORY. SAFETY MEASURES IN PLACE AND CALL LIGHT WITH IN REACH, WILL CONTINUE TO MONITOR.
[2019-12-09 07:42] LABS: BASOPHILS # (AUTO) 0.1 K/uL (0.00-0.22); BASOPHILS % (AUTO) 1.5 % (0.0-2.0); EOSINOPHILS # (AUTO) 0.3 K/uL (0-0.4); EOSINOPHILS % (AUTO) 3.3 % (0.0-4.0); HEMATOCRIT 25.6 % (36-48); HEMOGLOBIN 7.4 g/dL (12.0-16.0); LYMPHOCYTES # (AUTO) 2.5 K/uL (2.5-16.5); LYMPHOCYTES % (AUTO) 27.8 % (20.5-51.1); MEAN CORPUSCULAR HEMOGLOBIN 21 pg (27-31); MEAN CORPUSCULAR HGB CONC 29 g/dL (33-37); MEAN CORPUSCULAR VOLUME 73.8 fL (80-94); MONOCYTES # (AUTO) 0.6 K/uL (0.8-1.0); MONOCYTES % (AUTO) 6.2 % (1.7-9.3); NEUTROPHILS # (AUTO) 5.6 K/uL (1.8-7.7); NEUTROPHILS % (AUTO) 61.2 % (42.2-75.2); PLATELET COUNT (AUTO) 161 K/uL (140-450); RED BLOOD CELL COUNT(AUTO) 3.47 MIL/uL (4.20-5.40); RED CELL DISTRIBUTION WIDTH 32.2 % (11.6-13.7); WHITE BLOOD COUNT (AUTO) 9.1 K/uL (4.8-10.8)
[2019-12-09 07:49] LABS: ALBUMIN 3.3 g/dL (3.4-5.0); ANION GAP 15.6 (8-16); CARBON DIOXIDE 21.9 mmol/L (21-32); POTASSIUM 4.5 mmol/L (3.5-5.1); TOTAL BILIRUBIN 0.5 mg/dL (0.0-1.0)
[2019-12-09 08:00] VITALS: BP 103/61
[2019-12-09] MEDS: SERTRALINE 50 MG TAB PO SCH (08:45)
[2019-12-09] MEDS: ASCORBIC ACID 500 MG TAB PO SCH (08:46)
[2019-12-09] MEDS: FERROUS SULFATE 325 MG TABEC PO SCH ×3 (08:46→16:44)
[2019-12-09] MEDS: METOPROLOL 50 MG TAB PO SCH (08:48)
[2019-12-09] MEDS: LISINOPRIL 20 MG TAB PO SCH (08:48)
[2019-12-09] MEDS: HYDROCHLOROTHIAZIDE 25 MG TAB PO SCH (08:48)
--- NOTE | 2019-12-09 08:52 | NUR ---
MEDICATIONS DUE GIVEN CHECK VITAL SIGNS PRIOR TO MEDICATIONS. BP 103/61 TN 61. BP MEDICATIONS NOT GIVEN. WILL CONTINUE TO MONITOR.
--- NOTE | 2019-12-09 11:46 | NUR ---
MEDICATIONS DUE GIVEN AND PT DENIES PAIN AND NO DISTRESS NOTED,
--- NOTE | 2019-12-09 12:30 | NUR ---
PT IS EATING LUNCH, DENIES PAIN AND NO DISTRESS NOTED. WILL CONTINUE TO MONITOR
--- NOTE | 2019-12-09 17:30 | NUR ---
PT IS DISCHARGED AT THIS TIME. DISCHARGED INSTRUCTION PROVIDED TO THE PATIENT. EDUCATED PT TO FOLLOW UO WITH MD. ANSWERS ALL PATIENT QUESTIONS.REMOVED ALL ID BANDS AND IV. PT CHANGES TO HER OWN CLOTHES AND GAVE HER PERSONAL BELONGINGS AND MEDICINES.ESCORTED TO THE LOBBY PT IS DISCHARGED HOME.PT IS IN STABLE CONDITION.
== END 2019-12-09 17:30 | disposition home or self-care (01) | DRG 532 ==
LOC: MED 10:13 → MTU 11:58 → UNDOADMOB 11:58 → MTU 14:52 → OBSVTOIN 12-08 14:37
PROVIDERS: ADMIT Hospitalist; ATTEND Hospitalist
PROC: 30233N1 Transfusion of Nonautologous Red Blood Cells into Peripheral Vein, Percutaneous Approach (ICD-10-PCS; principal; 2019-12-07)
DX: N92.0 Excessive and frequent menstruation with regular cycle (principal); E44.1 Mild protein-calorie malnutrition; D25.9 Leiomyoma of uterus, unspecified; I10 Essential (primary) hypertension; F41.9 Anxiety disorder, unspecified; F32.9 Major depressive disorder, single episode, unspecified; D50.0 Iron deficiency anemia secondary to blood loss (chronic); E66.9 Obesity, unspecified; E78.5 Hyperlipidemia, unspecified; Z68.34 Body mass index [BMI] 34.0-34.9, adult; Z79.899 Other long term (current) drug therapy; Z98.51 Tubal ligation status; Z91.14 Patient's other noncompliance with medication regimen; Z82.3 Family history of stroke; Z83.3 Family history of diabetes mellitus; Z82.49 Family history of ischemic heart disease and other diseases of the circulatory system
CPT/HCPCS: 99218; 99285; G0378; 36415; 71045; 76856; 80048; 80053; 82607; 82728; 83036; 83540; 83735; 84100; 84443; 85025; 85045; 86886; 86900; 86901; 86920; 87081; J7030; P9016; Q0092

== ENCOUNTER 2020-12-07 13:59 | Observation (INO) | payer OTHER, SELFPAY ==
[~2020-12-07] VITALS: Ht 175.3 cm; Wt 97.5 kg
[~2020-12-07 13:59] MED LIST changes: -CYCL10TA14 PO; +HYDR-4004 PO; -IBUP-2213 PO; -ISOS10TA9 PO; -LISI-420 PO; +LISI20TA29 PO; -SERT-146 PO; +SERT-515 PO
[2020-12-07 14:14] VITALS: BP 95/56
[2020-12-07 15:07] LABS: BASOPHILS # (AUTO) 0.1 K/uL (0.00-0.22); BASOPHILS % (AUTO) 1.1 % (0.0-2.0); EOSINOPHILS % (AUTO) 0.4 % (0.0-4.0); LYMPHOCYTES % (AUTO) 11.9 % (20.5-51.1); MEAN CORPUSCULAR HEMOGLOBIN 17 pg (27-31); MEAN CORPUSCULAR HGB CONC 27 g/dL (33-37); MEAN CORPUSCULAR VOLUME 62.1 fL (80-94); MONOCYTES # (AUTO) 0.4 K/uL (0.8-1.0); MONOCYTES % (AUTO) 5.1 % (1.7-9.3); NEUTROPHILS # (AUTO) 7.2 K/uL (1.8-7.7); NEUTROPHILS % (AUTO) 81.5 % (42.2-75.2); PLATELET COUNT (AUTO) 291 K/uL (140-450); RED BLOOD CELL COUNT(AUTO) 2.64 MIL/uL (4.20-5.40); RED CELL DISTRIBUTION WIDTH 19.9 % (11.6-13.7); WHITE BLOOD COUNT (AUTO) 8.8 K/uL (4.8-10.8)
[2020-12-07 15:15] LABS: HEMATOCRIT 16.4 % (36-48); HEMOGLOBIN 4.4 g/dL (12.0-16.0)
[2020-12-07 15:18] LABS: ANION GAP 13.6 (8-16); CARBON DIOXIDE 24.4 mmol/L (21-32); CREATININE 1.4 mg/dL (0.6-1.3)
--- NOTE | 2020-12-07 15:24 | NUR ---
DR OBRIEN AT BEDSIDE
--- NOTE | 2020-12-07 15:26 | NUR ---
45 Y/O FEMALE C/O DIZZINESS S/P HEAVY VAGINAL BLEEDING FOR PAST THREE DAYS DUE TO MENTRUAL CYCLE. SATURATING X1 PAD/HR. PT ALSO C/O SOB AND DECREASED APPETITE. PT ALSO C/O WEAKNESS, DIZZINESS, AND NAUSEA. PT DENIES VAGINAL BLEEDING NOW. PT STATES THAT THIS HAS HAPPENED BEFORE. PT TOOK TYLENOL WITH RELIEF. LUNG SOUNDS CLEAR BILATERAL THROUGHOUT. PT DENIES PAIN AT THIS TIME. PT STATES SHE IS CONSTIPATED BUT LBM TODAY. ACTIVE BOWEL SOUNDS X4 QUADS. PT A/O X4 WITH EVEN AND UNLABORED RESPIRATIONS. PT IN GOWN, LAYING IN BED WITH BED IN LOWEST POSITION, BRAKES LOCKED, X2 SIDERAILS UP FOR SAFETY. PMH: ANEMIA, HTN NKDA
--- NOTE | 2020-12-07 15:42 | NUR ---
Makayla farias in [facility] - 12/07/20 at 1557 by [email or web address] LAB AT BEDSIDE
--- NOTE | 2020-12-07 15:44 | NUR ---
US AT BEDSIDE
--- NOTE | 2020-12-07 15:46 | NUR ---
Makayla farias in [facility] - 12/07/20 at 1546 by [email or web address] RADHA DELGADO SAMPLE COLLECTED AND WALKED TO LAB
--- NOTE | 2020-12-07 15:46 | NUR ---
RADHA DELGADO SAMPLE COLLECTED AND WALKED TO LAB
[2020-12-07] MEDS ORDERED: ACETAMINOPHEN 325 MG TAB PO PRN (16:30)
[2020-12-07] MEDS ORDERED: ONDANSETRON 4 MG/2 ML VIAL IVP PRN (16:30)
[2020-12-07] MEDS ORDERED: HYDROcodone/APAP 5/325 MG 1 TAB TAB PO PRN (16:30)
[2020-12-07] MEDS ORDERED: MORPHINE SULFATE 2 MG/ML SYR IVP PRN (16:30)
[2020-12-07] MEDS ORDERED: LORazepam 2 MG/ML VIAL IVP PRN (16:30)
--- NOTE | 2020-12-07 17:05 | NUR ---
Note undone in EDM - 12/07/20 at 1729 by [email or web address] Consent signed per DR OBRIEN AND PATIENT agreeing to administration of blood. Blood has been type and crossmatched. Blood sent from blood bank. Information on unit of blood checked against patient wristband at bedside by two nurses. All information matches. Patient or responsible alliance party informed of potential complications associated with blood transfusion. Informed of possible transfusion reaction symptoms. Aware of need to notify nurse at once of itching, shortness of breath, flushing, feeling of impending doom, or other symptoms not previously present. Vital signs taken within 5 minutes prior to initiation of transfusion. RN will remain with patient for first 15 minutes of transfusion at which time vital signs will be re-assessed.
--- NOTE | 2020-12-07 17:05 | NUR ---
Consent signed per DR OBRIEN AND PATIENT agreeing to administration of blood. Blood has been type and crossmatched. Blood sent from blood bank. Information on unit of blood checked against patient wristband at bedside by two nurses. All information matches. Patient or responsible republican informed of potential complications associated with blood transfusion. Informed of possible transfusion reaction symptoms. Aware of need to notify nurse at once of itching, shortness of breath, flushing, feeling of impending doom, or other symptoms not previously present. Vital signs taken within 5 minutes prior to initiation of transfusion. RN will remain with patient for first 15 minutes of transfusion at which time vital signs will be re-assessed.
--- NOTE | 2020-12-07 17:28 | NUR ---
RECEIVED REPORT FROM ER NURSE ÁLVARO PATIENT IS AAOX4, ON ROOM AIR, AMBULATORY, SKIN INTACT, CHIEF COMPLAIN OF WEAKNESS, DIZZINESS, SOB AND EXCESSIVE BLEEDING FOR THE PAST 3 DAYS, CLEAR LUNG SOUNDS AND ON REGULAR DIET. NEGATIVE FOR RAPID TEST CAME FROM HOME. STARTED BLOOD TRANSFUSION AT 1705 AT 75MLS/HR INFUSING WELL AND NO TRANSFUSION REACTIONS.
--- NOTE | 2020-12-07 17:29 | NUR ---
GAVE REPORT TO OFELIA HINTON FOR ADMIT TO TELE 104A. ETA 15 MINS
--- NOTE | 2020-12-07 17:50 | NUR ---
Patient will be admitted to care of DR HOROWITZ. Admited to TELEMETRY. Will go to room 104A. Belongings list completed. Report to ODALYS HINTON.
--- NOTE | 2020-12-07 17:50 | NUR ---
PATIENT BROUGHT TO [facility] VIA GURNEY, ASSISTED TO BED, ONGOING BLOOD TRANSFUSION AT 75 MLS/HR, VITAL SIGNS TAKEN BP 115/53 UT 70 RR 19 TEMP 98.5 OXYGEN SATURATION 99%, ORIENTED TO ROOM, MRSA NARES TAKEN AND SENT TO LAB.ON TELEMONITOR, SAFETY MEASURES IN PLACE AND CALL LIGHT WITHIN REACH. WILL CONTINUE TO MONITOR.
--- NOTE | 2020-12-07 18:00 | NUR ---
BLOOD TRANSFUSION INCREASE RATE TO 100 MLS/HR NO REACTION AND PT STABLE AND NO DISTRESS NOTED.
[2020-12-07 19:00] VITALS: BP 107/45
--- NOTE | 2020-12-07 19:16 | NUR ---
ENDORSED TO NIGHT NURSE FOR CONTINUITY OF CARE. PT IS STABLE.
--- NOTE | 2020-12-07 19:36 | NUR ---
RECEIVED BEDSIDE REPORT FROM DAY RN FOR CONTINUITY OF CARE. PATIENT A/A/AOX4, LAYING IN BED WATCHING TV. PT NOT IN DISTRESS. PATIENT RECEIVING THE 1ST UNIT OF PRBC AND TOLERATING IT WELL. NO COMPLAIN FROM THE PATIENT AT THIS TIME. SAFETY MEASURES IN PLACED. CALL LIGHT WITHIN REACH. WILL CONTINUE POC AND MONITORING.
--- NOTE | 2020-12-07 21:30 | NUR ---
1ST UNIT OF PRBC COMPLETED. NO TRANSFUSION REACTION NOTED. NO COMPLAIN FROM THE PATIENT. 2ND UNIT OF PRBC STARTED ORDERED. WILL CONTINUE RO MONITOR THE PATIENT FOR ANY TRANSFUSION REACTION.
[2020-12-08] VITALS: BP 125/71
--- NOTE | 2020-12-08 00:15 | NUR ---
2ND UNIT OF PRBC COMPLETED. NO TRANSFUSION REACTION NOTED. NO COMPLAIN FROM THE PATIENT. STARTED THE 3RD UNIT OF BLOOD TRANSFUSION ORDERED. WILL CONTINUE TO MONITOR THE PATIENT. CALL LIGHT WITHIN REACH
--- NOTE | 2020-12-08 02:00 | NUR ---
3RD UNIT OF PRBC STILL INFUSING AND PT TOLERATING IT WELL. PT ASLEEP AT THIS TIME. VISIBLE CHEST RISE AND FALL NOTED. CALL LIGHT WITHIN REACH.
--- NOTE | 2020-12-08 03:31 | NUR ---
3RD UNIT OF PRBC COMPLETED. NO TRANSFUSION REACTION NOTED. NO COMPLAIN FROM THE PATIENT. PATIENT VITAL SIGNS STABLE, AFEBRILE, SATING 98% ON RA.
[2020-12-08 04:00] VITALS: BP 120/74
--- NOTE | 2020-12-08 04:00 | NUR ---
PATIENT VITAL SIGNS STABLE, AFEBRILE, SATING 97% ON RA. NO COMPLAIN OF PAIN AT THIS TIME. SINUS RHYTHM ON VALUE STREAM MANAGER, HR-62. CALL LIGHT WITHIN REACH.
--- NOTE | 2020-12-08 06:30 | NUR ---
PATIENT STABLE. NO ACUTE EVENTS THROUGHOUT THE NIGHT. PT NOT IN ANY DISTRESS. NO COMPLAIN AT THIS TIME. ALL NEEDS ATTENDED. CALL LIGHT WITHIN REACH. WILL ENDORSE THE PT TO THE ONCOMING RN FOR CONTINUITY OF CARE.
[2020-12-08 07:06] LABS: BASOPHILS # (AUTO) 0.1 K/uL (0.00-0.22); BASOPHILS % (AUTO) 1.3 % (0.0-2.0); EOSINOPHILS # (AUTO) 0.1 K/uL (0-0.4); EOSINOPHILS % (AUTO) 0.6 % (0.0-4.0); HEMATOCRIT 23.4 % (36-48); HEMOGLOBIN 7.2 g/dL (12.0-16.0); LYMPHOCYTES # (AUTO) 1.3 K/uL (2.5-16.5); LYMPHOCYTES % (AUTO) 13.8 % (20.5-51.1); MEAN CORPUSCULAR HEMOGLOBIN 22 pg (27-31); MEAN CORPUSCULAR HGB CONC 31 g/dL (33-37); MEAN CORPUSCULAR VOLUME 71.8 fL (80-94); MONOCYTES # (AUTO) 0.5 K/uL (0.8-1.0); MONOCYTES % (AUTO) 5.4 % (1.7-9.3); NEUTROPHILS # (AUTO) 7.2 K/uL (1.8-7.7); NEUTROPHILS % (AUTO) 78.9 % (42.2-75.2); PLATELET COUNT (AUTO) 204 K/uL (140-450); RED BLOOD CELL COUNT(AUTO) 3.26 MIL/uL (4.20-5.40); RED CELL DISTRIBUTION WIDTH 27.3 % (11.6-13.7); WHITE BLOOD COUNT (AUTO) 9.2 K/uL (4.8-10.8)
--- NOTE | 2020-12-08 07:20 | NUR ---
RECEIVED ENDORSEMENT AT THIS TIME. PT IS STABLE RESTING WITH EYES CLOSED. RESP EVEN AND UNLABORED.
[2020-12-08 07:25] LABS: ALBUMIN 3.4 g/dL (3.4-5.0); ANION GAP 11.8 (8-16); CARBON DIOXIDE 25.6 mmol/L (21-32); MAGNESIUM 2.3 mg/dL (1.8-2.4); POTASSIUM 4.4 mmol/L (3.5-5.1); TOTAL BILIRUBIN 0.9 mg/dL (0.0-1.0)
[2020-12-08 08:00] VITALS: BP 124/76
--- NOTE | 2020-12-08 08:15 | NUR ---
PT IS AWAKE AND ALERT ORIENTED X 4. COMMUNICATES EFFECTIVELY. CALL LIGHT IN REACH, SAFETY MEASURES IN PLACE. LUNG SOUNDS CLEAR, ABD IS SOFT AND NONTENDER, REPORTS HEADACHE 9/10.PT WAS OFFERED TYLENOL , NORCO OR MORPHINE ACCORDING TO ORDERS AND PT REQUESTED TYLENOL. ALTERNATIVE COPING STRATEGIES EDUCATED ON INCLUDING DISTRACTION, DEEP BREATHING AND REPOSITIONING. SKIN INTACT HAS IV ACCESS TO RIGHT AC THAT IS INTACT AND PATENT. WILL CONTINUE WITH POC.
--- NOTE | 2020-12-08 08:48 | NUR ---
PATIENT HAS BEEN SCREENED AND CATEGORIZED LOW NUTRITION RISK. PATIENT WILL BE SEEN WITHIN 7 DAYS OF ADMISSION. 12/14/[address]
--- NOTE | 2020-12-08 10:15 | NUR ---
PT RESTING IN BED DENIES ANY DISTRESS.
[2020-12-08 12:00] VITALS: BP 99/56
--- NOTE | 2020-12-08 12:15 | NUR ---
LAYING IN BED DENIES ANY DISTRESS. CALL LIGHT WITHIN REACH MOVIES HER PHONE, RESPIRATION EVEN AND UNLABORED.
[2020-12-08 14:24] VITALS: BP 99/56
--- NOTE | 2020-12-08 14:25 | NUR ---
DC [age] YRS OLD FEMALE PATIENT WAS ADMITTED FROM HOME WITH A DX OF ANEMIA. PATIENT HAS A HX OF HEAVY MENSTRUAL BLEEDING, IRON DEFICIENCY AND HTN. H/H ON ADMISSION 4.4/16.4 TRANSFUSED 2 UNITS PRBC H/H 7.2/23.4AND CONTINUED HOME MEDS. PELVIC US SHOWED FIBROID AND LEFT OVARIAN CYST. DC PLAN TO GO HOME AND F/U WITH PCP AND OBGYN. CM TO FOLLOW
--- NOTE | 2020-12-08 15:00 | NUR ---
PT DISCHARGED AT THIS TIME WITH DISCHARGE INSTRUCTIONS PICKED UP BY SON PT IS AAOX 4 AMBULATORY DENIES ANY DISTRESS. PT VERBALIZED UNDERSTANDING OF DISCHARGE INSTRUCTIONS. DISCHARGED WITH ALL BELONGINGS.
== END 2020-12-08 15:38 | disposition home or self-care (01) ==
LOC: MED 13:59 → MTU 16:32
PROVIDERS: ADMIT Hospitalist; ATTEND Hospitalist
DX: D64.9 Anemia, unspecified (principal); Z20.822 Contact with and (suspected) exposure to COVID-19; R06.02 Shortness of breath; N92.0 Excessive and frequent menstruation with regular cycle; I10 Essential (primary) hypertension; F32.9 Major depressive disorder, single episode, unspecified; F41.9 Anxiety disorder, unspecified; E61.1 Iron deficiency; D25.9 Leiomyoma of uterus, unspecified; N83.202 Unspecified ovarian cyst, left side; Z98.51 Tubal ligation status; Z79.899 Other long term (current) drug therapy
CPT/HCPCS: 36415; 36430; 76856; 80048; 80053; 83540; 83735; 84702; 85025; 86886; 86900; 86901; 86920; 87081; 87426; 93976; 99285; G0378; J7030; P9016

== ENCOUNTER 2021-02-07 15:54 | Observation (INO) | payer OTHER, SELFPAY ==
[~2021-02-07] VITALS: Ht 175.3 cm; Wt 102.1 kg
[2021-02-07 16:03] VITALS: BP 106/54
--- NOTE | 2021-02-07 16:07 | NUR ---
PT AMBULATED TO BED 6.
[2021-02-07 16:26] LABS: BASOPHILS # (AUTO) 0.1 K/uL (0.00-0.22); BASOPHILS % (AUTO) 1.9 % (0.0-2.0); EOSINOPHILS % (AUTO) 0.6 % (0.0-4.0); LYMPHOCYTES # (AUTO) 1.5 K/uL (2.5-16.5); MEAN CORPUSCULAR HEMOGLOBIN 16 pg (27-31); MEAN CORPUSCULAR HGB CONC 27 g/dL (33-37); MEAN CORPUSCULAR VOLUME 59.6 fL (80-94); MONOCYTES # (AUTO) 0.5 K/uL (0.8-1.0); MONOCYTES % (AUTO) 8.6 % (1.7-9.3); NEUTROPHILS # (AUTO) 4.2 K/uL (1.8-7.7); NEUTROPHILS % (AUTO) 65.9 % (42.2-75.2); PLATELET COUNT (AUTO) 217 K/uL (140-450); RED BLOOD CELL COUNT(AUTO) 2.28 MIL/uL (4.20-5.40); RED CELL DISTRIBUTION WIDTH 21.2 % (11.6-13.7); WHITE BLOOD COUNT (AUTO) 6.4 K/uL (4.8-10.8)
[2021-02-07 16:33] LABS: HEMOGLOBIN 3.7 g/dL (12.0-16.0)
[2021-02-07 16:34] LABS: HEMATOCRIT 13.6 % (36-48)
--- NOTE | 2021-02-07 16:34 | NUR ---
DR WAYNE AT BEDSIDE EVALUATING PT
[2021-02-07] MEDS ORDERED: NACL 0.9% 1,000 ML IV ONE (16:35)
--- NOTE | 2021-02-07 16:40 | NUR ---
Collected RADHA HAYES, gave to starch factory laborer.
[2021-02-07] MEDS ORDERED: METO100T14 PO (16:41)
--- NOTE | 2021-02-07 16:42 | NUR ---
45/F presents to ED with c/o chest pain and dizziness. Patient states she has had worsening chest pain and dizziness for one week. Patient states she attempted to see her doctor but has been unable to get in. Patient states "I felt like I was going to pass out and I could not drive." Patient is alert and oriented x4, answering questions appropriately, placed in gown on bedside classroom monitor. EKG performed bedside.
[2021-02-07 16:45] LABS: ALBUMIN 3.5 g/dL (3.4-5.0); ANION GAP 12.9 (8-16); CARBON DIOXIDE 23.6 mmol/L (21-32); CREATININE 1.2 mg/dL (0.6-1.3); POTASSIUM 4.5 mmol/L (3.5-5.1); TOTAL BILIRUBIN 0.5 mg/dL (0.0-1.0)
[2021-02-07] MEDS ORDERED: ONDANSETRON 4 MG/2 ML VIAL IVP PRN (16:55)
[2021-02-07] MEDS ORDERED: LORazepam 2 MG/ML VIAL IVP PRN (16:55)
--- NOTE | 2021-02-07 17:41 | NUR ---
Patient will be admitted to care of Dr. Whitney. Admited to Med/Surg. Will go to room 120B. Belongings list completed. Report to Viviane.
--- NOTE | 2021-02-07 18:26 | NUR ---
PT ARRIVED ON UNIT VIA TIO, KUN OBTAINED. WATER GIVEN. MRSA OBTAINED. PT ORIENTED TO ROOM AND HOSPITAL POLICES. COMPLAINS OF HEAD ACHE MEDITATION GIVEN PER MD ORDER. PT EDUCATED VERBALIZED UNDERSTANDING ALL SAFETY MEASURES ARE IN PLACE.
[2021-02-07] MEDS: ACETAMINOPHEN 325 MG TAB PO PRN (18:29)
--- NOTE | 2021-02-07 19:21 | NUR ---
PT IN STABLE CONDITION. PT ENDORSED TO PAINT SPRAY INSPECTOR RN FOR CONTINUITY OF CARE.
--- NOTE | 2021-02-07 20:00 | NUR ---
PATIENT WAS RECEIVED AWAKE IN BED ALERT AND COHERENT, C/O DIZZINESS, CHEST PAIN AND HEADACHE.
--- NOTE | 2021-02-07 21:00 | NUR ---
INITIAL V/S WAS TAKEN FOR BLOOD TRANSFUSION, BLOOD FROM BLOOD BANK WAS VERIFIED BY 2 LICENSED RN, BLOOD TRANSFUSION WAS STARTED AT 2119. PATIENT WAS MONITORED CLOSELY FOR THE FIRST 15 MINUTES OF TRANSFUSION AT THE RATE OF 50 ML/HOUR, NO ASE OBSERVED. AROUND 2134 TRANSFUSION RATE WAS TITRATED UP TO 110 ML/HOUR. PATIENT WAS TOLERATING INFUSION VERY WELL. LEFT MESSAGE TO DR. SHI HOROWITZ REGARDING PATIENT COMPLAINT OF CHEST SORENESS AND HEADACHE ABOUT 02/24.
[2021-02-08] VITALS: BP 103/65
--- NOTE | 2021-02-08 01:00 | NUR ---
AROUND 0045 THE 2ND PRBC WAS STARTED TO INFUSED, FIRST 15 MINUTES AT 50 ML/HOUR WAS WELL TOLERATED BY THE PATIENT, NO ASE WAS OBSERVED. INFUSION RATE WAS BUMPED UP TO 100 ML/HOUR.
--- NOTE | 2021-02-08 02:00 | NUR ---
INFUSION WAS ON GOING V/S WNL, PATIENT WAS CALMLY ASLEEP, WITH REGULAR BREATHING PATTERN, NO ASE OBSERVED AT THIS TIME.
[2021-02-08 04:00] VITALS: BP 116/65
--- NOTE | 2021-02-08 05:00 | NUR ---
THIRD PRBC WAS STARTED FOR TRANSFUSION, TWO LICENSED RN VERIFIED THE BLOOD PRODUCT AT BEDSIDE, FIRST 15 MINUTES OF TRANSFUSION WAS WELL TOLERATED, NO ASE OBSERVED, RATE WAS INCREASED TO ML/HOUR, TOLERATING WELL.
--- NOTE | 2021-02-08 07:30 | NUR ---
RECEIVED REPORT FROM BENEFITS COUNSELOR NURSE IN STABLE CONDITION. PT IS RECEIVING O POSITIVE BLOOD TRANSFUSION IN A LEFT AC 20 GAUGE AT 110 ML/HR. PT VITAL SIGNS STABLE. PT ON ROOM AIR WITH CHEST RISING AND FALLING EVEN AND UNLABORED. NO SIGNS OF ACUTE REACTION. SAFETY MEASURES IN PLACE, CALL LIGHT WITHIN REACH. WILL CONTINUE TO MONITOR.
--- NOTE | 2021-02-08 07:30 | NUR ---
V/S WAS WNL, BLOOD INFUSING WELL, NO ASE OBSERVED, CHANGE OF SHIFT WERE GIVEN, TRANSFER OF CARE ENDORSED.
[2021-02-08 08:00] VITALS: BP 105/67
--- NOTE | 2021-02-08 09:20 | NUR ---
PATIENT HAS BEEN SCREENED AND CATEGORIZED LOW NUTRITION RISK. PATIENT WILL BE SEEN WITHIN 7 DAYS OF ADMISSION. 02/14/[address]
--- NOTE | 2021-02-08 09:55 | NUR ---
PT TRANSFUSION STARTED. PRE INFUSION VITAL SIGNS WNL. SAFETY MEASURES IN PLACE, CALL LIGHT WITHIN REACH. WILL CONTINUE TO MONITOR.
--- NOTE | 2021-02-08 10:10 | NUR ---
VITAL SIGNS WNL, PT IS IN STABLE CONDITION. WILL CONTINUE TO MONITOR. CALL LIGHT WITHIN REACH.
[2021-02-08] MEDS: ACETAMINOPHEN 325 MG TAB PO PRN ×3 (10:31→20:56)
--- NOTE | 2021-02-08 10:40 | NUR ---
VITAL SIGNS WITHIN NORMAL LIMIT, PT IN STABLE CONDITION. NO SIGNS OF ACUTE DISTRESS. SAFETY MEASURES IN PLACE, WILL CONTINUE TO MONITOR.
[2021-02-08 10:44] LABS: ALBUMIN 3.2 g/dL (3.4-5.0); ANION GAP 11.6 (8-16); CARBON DIOXIDE 24.4 mmol/L (21-32); TOTAL BILIRUBIN 0.8 mg/dL (0.0-1.0)
--- NOTE | 2021-02-08 13:13 | NUR ---
PT FINISHED BLOOD TRANSFUSION. PT TOLERATED ADMINISTRATION. PT VITAL SIGNS WNL. SAFETY MEASURES IN PLACE, CALL LIGHT WITHIN REACH. WILL CONTINUE TO MONITOR.
--- NOTE | 2021-02-08 13:14 | NUR ---
PT VITAL SIGNS AFTER TRANSFUSION ARE FOLLOWS: 98.7 T 60 HR 18 RR 106/69 BP 0/10 PAIN 96% O2
[2021-02-08 16:00] LABS: HEMATOCRIT 22.7 % (36-48)
[2021-02-08 16:08] LABS: HEMOGLOBIN 6.9 g/dL (12.0-16.0)
--- NOTE | 2021-02-08 19:03 | NUR ---
PRBC INFUSION STARTED AT 60 ML/HR, VITAL SIGNS WNL. PT IS RESTING COMFORTABLE IN BED, CALL LIGHT WITHIN REACH. SAFETY MEASURES IN PLACE. WILL CONTINUE TO MONITOR.
--- NOTE | 2021-02-08 19:06 | NUR ---
PT ENDORSED TO TRAIN STATION SERVER FOR CONTINUITY OF CARE, PT IN STABLE CONDITION.
--- NOTE | 2021-02-08 19:06 | NUR ---
RECEIVED PATIENT FROM AM NURSE FOR CONTINUITY OF CARE. PATIENT IS A/A/O X4. RESPIRATORY EVEN AND UNLABORED, ON ROOM AIR, NO SIGN OF DISTRESS NOTED. SKIN WARM, DRY, NON DIAPHORETIC. IV ON LEFT AC 20G, INTACT AND PATENT, IS TRANSFUSING PRBC @60ML/HR. PATIENT DENIES ANY PAIN, HIVES OR CHILLS AT THIS TIME. PATIENT DENIES ANY ACTIVE BLEEDING. ABLE TO MAKE NEEDS KNOWN. PLAN OF CARE DISCUSSED, PATIENT VERBALIZED UNDERSTANDING. CALL LIGHT WITHIN REACH. WILL CONTINUE TO MONITOR.
[2021-02-08 20:00] VITALS: BP 114/72
--- NOTE | 2021-02-08 20:56 | NUR ---
PATIENT COMPLAINS OF INTERMITTENT HEADACHE 10/25. DENIES ANY DIZZINESS, BLURRY VISION OR ANY N/V. PRN TYLENOL GIVEN ORDER. NO SIGN OF DISTRESS NOTED. WILL CONTINUE TO MONITOR.
--- NOTE | 2021-02-08 22:15 | NUR ---
BLOOD TRANSFUSION COMPLETED. PATIENT DENIES ANY CHILL, FEVER, OR PAIN. NO SIGN OF REACTION. VS WITHIN NORMAL LIMIT, BP 110/70, HR 58, RR 16, TEMP 98.5 F. WILL CONTINUE TO MONITOR.
--- NOTE | 2021-02-08 22:45 | NUR ---
PRBC IS INFUSING @60ML/HR. VITAL SIGNS WITHIN NORMAL LIMIT, BP 111/74, HR 60, TEMP 98.7 F, RR 16, PAIN 0/10. PATIENT IS RESTING IN BED, NO SIGN OF DISTRESS NOTED. CALL LIGHT WITHIN REACH. WILL CONTINUE TO MONITOR.
--- NOTE | 2021-02-08 23:30 | NUR ---
PATIENT DENIES ANY CHILL, HIVE, SOB OR PAIN. NO SIGN OF DISTRESS NOTED. CALL LIGHT WITHIN REACH. WILL CONTINUE TO MONITOR.
--- NOTE | 2021-02-09 02:00 | NUR ---
BLOOD TRANSFUSION COMPLETED. PATIENT DENIES ANY PAIN, FEVER, OR HIVES AT THIS TIME. NO SIGN OF DISTRESS NOTED. CALL LIGHT WITHIN REACH. WILL CONTINUE TO MONITOR.
[2021-02-09 02:46] LABS: HEMOGLOBIN 8.9 g/dL (12.0-16.0)
[2021-02-09 04:00] VITALS: BP 126/76
--- NOTE | 2021-02-09 04:00 | NUR ---
ROUND CHECK. PATIENT IS SLEEPING, CHEST RISE AND FALL NOTED. NO SIGN OF DISTRESS NOTED. CALL LIGHT WITHIN REACH. WILL CONTINUE TO MONITOR.
--- NOTE | 2021-02-09 06:00 | NUR ---
PATIENT IS SLEEPING, CHEST RISE AND FALL NOTED, NO SIGN OF RESPIRATORY DISTRESS NOTED. CALL LIGHT WITHIN REACH. WILL CONTINUE TO MONITOR.
--- NOTE | 2021-02-09 07:05 | NUR ---
ENDORSED PATIENT TO AM NURSE FOR CONTINUITY OF CARE. PATIENT IS STABLE.
--- NOTE | 2021-02-09 07:30 | NUR ---
PATIENT REPORT RECEIVED FROM NIGHTSHIFT RN. NO S/SX OF DISTRESS. PATIENT RESTING IN BED. CALL LIGHT WITH REACH. ALL SAFETY MEASURES IN PLACE.
--- NOTE | 2021-02-09 09:00 | NUR ---
PATIENT ASSESSED. DENIES PAIN AT THIS TIME. NO S/SX OF DISTRESS AT THIS TIME. ALL SAFETY MEASURES IN PLACE
--- NOTE | 2021-02-09 11:35 | NUR ---
PT LEFT UNIT VIA GURNEY FOR PROCEDURE. PT IN STABLE CONDITION
[2021-02-09 11:52] VITALS: BP 121/74
[2021-02-09 12:00] VITALS: BP 121/74
--- NOTE | 2021-02-09 12:31 | NUR ---
PATIENT DISCHARGE INFORMATION COMPLETED. PATIENT VERBALIZED UNDERSTANDING FOR CONTINENTLY OF CARE. IV REMOVED CATHETER INTACT. PATIENT IS STABLE NO DISTRESS NOTED.
--- NOTE | 2021-02-09 13:11 | NUR ---
PT LEFT UNIT. PT DISCHARGE EDUCATION COMPLETE . PT VERBALIZED UNDERSTANDING FOR CONTINUITY OF CARE. ARM BANDS REMOVED, DISCHARGE PACKET AND EDUCATIONAL FORMS GIVEN. ALL FORMS SIGNED AND COMPLETE.
== END 2021-02-09 13:08 | disposition home or self-care (01) ==
LOC: MED 15:54 → MMU 16:55 → MTU 17:30
PROVIDERS: ADMIT Hospitalist; ATTEND Hospitalist
DX: D64.9 Anemia, unspecified (principal); Z20.822 Contact with and (suspected) exposure to COVID-19; N92.0 Excessive and frequent menstruation with regular cycle; R06.02 Shortness of breath; R53.83 Other fatigue; Z79.899 Other long term (current) drug therapy
CPT/HCPCS: 36415; 36430; 71045; 80053; 83540; 83735; 84484; 85018; 85025; 86886; 86900; 86901; 86920; 87081; 87426; 93005; 96360; 99285; G0378; P9016

== ENCOUNTER 2024-02-22 02:38 | Inpatient (IN) | payer OTHER ==
[~2024-02-22] VITALS: Ht 175.3 cm; Wt 96.6 kg
[2024-02-22] VITALS (7 sets, daily range): BP systolic 113–160; BP diastolic 67–93; PULSE 54–66; RESP 16–20; TEMP 96.3–98.3; O2SAT 99–100
[~2024-02-22 02:38] MED LIST changes: -FERR-18 PO; +METO100T14 PO; -METO25TA PO; -VITC500 PO
[2024-02-22 06:47] LABS: ANION GAP 13.8 (8-16); CALCIUM 9.1 mg/dL (8.5-10.1); CARBON DIOXIDE 24.3 mmol/L (21-32); CREATININE 0.8 mg/dL (0.6-1.3); POTASSIUM 4.1 mmol/L (3.5-5.1)
[2024-02-22 06:55] LABS: BASOPHILS # (AUTO) 0.1 K/uL (0.00-0.22); BASOPHILS % (AUTO) 1.5 % (0.0-2.0); EOSINOPHILS # (AUTO) 0.1 K/uL (0-0.4); EOSINOPHILS % (AUTO) 1.6 % (0.0-4.0); HEMATOCRIT 22.3 % (36-48); LYMPHOCYTES # (AUTO) 1.5 K/uL (2.5-16.5); LYMPHOCYTES % (AUTO) 19.2 % (20.5-51.1); MEAN CORPUSCULAR HEMOGLOBIN 18 pg (27-31); MEAN CORPUSCULAR HGB CONC 27 g/dL (33-37); MEAN CORPUSCULAR VOLUME 66.2 fL (80-94); MONOCYTES # (AUTO) 0.6 K/uL (0.8-1.0); NEUTROPHILS # (AUTO) 5.5 K/uL (1.8-7.7); NEUTROPHILS % (AUTO) 69.7 % (42.2-75.2); PLATELET COUNT (AUTO) 249 K/uL (140-450); RED BLOOD CELL COUNT(AUTO) 3.36 MIL/uL (4.20-5.40); RED CELL DISTRIBUTION WIDTH 17.6 % (11.6-13.7); WHITE BLOOD COUNT (AUTO) 7.9 K/uL (4.8-10.8)
[2024-02-22 06:56] LABS: ALANINE AMINOTRANSFERASE 13 U/L (12-78); ALBUMIN 3.4 g/dL (3.4-5.0); ALKALINE PHOSPHATASE 52 U/L (50-136); ASPARTATE AMINOTRANSFERASE 8 U/L (15-37); BILIRUBIN,DIRECT 0.1 mg/dL (0.0-0.3); LIPASE 44 U/L (16-77); TOTAL BILIRUBIN 0.3 mg/dL (0.0-1.0); TOTAL PROTEIN, SERUM 7.8 g/dL (6.4-8.2)
[2024-02-22] MEDS: ONDANSETRON 4 MG/2 ML VIAL IVP ONE (08:00)
[2024-02-22] MEDS: ALUMINUM HYD/MAG/SIMETHICONE 30 ML UDC PO ONE (08:03)
[2024-02-22] MEDS ORDERED: MORPHINE SULFATE 2 MG/ML SYR IVP PRN ×2 (09:00)
[2024-02-22] MEDS ORDERED: LORazepam 1 MG TAB PO PRN (09:00)
[2024-02-22] MEDS ORDERED: NITROGLYCERIN 0.4 MG TAB SL PRN (09:00)
[2024-02-22] MEDS ORDERED: ZOLPIDEM 5 MG TAB PO PRN (09:00)
[2024-02-22] MEDS ORDERED: FERR-20 PO (09:30)
[2024-02-22] MEDS ORDERED: METO-498 PO (09:30)
[2024-02-22] MEDS ORDERED: LISI40TA8 PO (09:30)
[2024-02-22 10:36] LABS: AMYLASE 27 U/L (25-115); LIPASE 39 U/L (16-77)
[2024-02-22 10:43] LABS: INR 0.94 (0.8-1.2); PARTIAL THROMBOPLASTIN TIME 22.6 secs (22-35.6); PROTHROMBIN TIME 9.9 secs (10.8-13.4)
[2024-02-22] MEDS: SODIUM CHLORIDE FLUSH 10 ML SYR IVF SCH (13:51)
[2024-02-22 15:27] LABS: BILIRUBIN,URINE NEGATIVE (NEGATIVE); BLOOD, URINE NEGATIVE (NEGATIVE); COLOR,URINE YELLOW (YELLOW); LEUKOCYTE ESTERASE ,URINE 1+ (NEGATIVE); NITRITE, URINE NEGATIVE (NEGATIVE); PROTEIN,URINE NEGATIVE (NEGATIVE); UGLUCOSE NEGATIVE (NEGATIVE); UROBILINOGEN,URINE 0.2 EU/dL (0.2 - 1)
[2024-02-22 15:36] LABS: APPEARANCE,URINE SLIGHTLY HAZY (CLEAR)
[2024-02-22 15:39] LABS: AMPHETAMINE, URINE NEGATIVE ng/ml (NEG <=1000); BARBITURATE, URINE NEGATIVE ng/ml (NEG <=200); BENZODIAZEPINE, URINE NEGATIVE ng/mL (NEG <=200); CANNABINOID, URINE POSITIVE ng/mL (NEG <=50); COCAINE, URINE NEGATIVE ng/mL (NEG <=300); OPIATE, URINE NEGATIVE ng/mL (NEG <=2000); PHENCYCLIDINE SCREEN,URINE NEGATIVE ng/mL (NEG <=25)
[2024-02-22 15:42] LABS: BACTERIA,URINE 1+ /HPF (None Seen); MUCUS,URINE None Seen /LPF (None Seen); RBC,URINE 0 /HPF (0-5); SQUAMOUS EPITHELIAL CELL,UR 0-3 (FEW) /LPF (0-3 (FEW)); WBC,URINE 0-5 /HPF (0-5)
[2024-02-22] MEDS: lisinopriL 20 MG TAB PO SCH (21:15)
[2024-02-22] MEDS: ACETAMINOPHEN 325 MG TAB PO PRN (21:16)
[2024-02-22 21:17] LABS: BASOPHILS # (AUTO) 0.1 K/uL (0.00-0.22); BASOPHILS % (AUTO) 1.5 % (0.0-2.0); EOSINOPHILS # (AUTO) 0.1 K/uL (0-0.4); EOSINOPHILS % (AUTO) 1.4 % (0.0-4.0); HEMATOCRIT 27.1 % (36-48); HEMOGLOBIN 7.6 g/dL (12.0-16.0); LYMPHOCYTES # (AUTO) 1.4 K/uL (2.5-16.5); MEAN CORPUSCULAR HEMOGLOBIN 20 pg (27-31); MEAN CORPUSCULAR HGB CONC 28 g/dL (33-37); MONOCYTES # (AUTO) 0.7 K/uL (0.8-1.0); MONOCYTES % (AUTO) 9.9 % (1.7-9.3); NEUTROPHILS # (AUTO) 5.2 K/uL (1.8-7.7); NEUTROPHILS % (AUTO) 68.2 % (42.2-75.2); PLATELET COUNT (AUTO) 210 K/uL (140-450); RED BLOOD CELL COUNT(AUTO) 3.88 MIL/uL (4.20-5.40); RED CELL DISTRIBUTION WIDTH 20.9 % (11.6-13.7); WHITE BLOOD COUNT (AUTO) 7.6 K/uL (4.8-10.8)
[2024-02-23] VITALS (11 sets, daily range): BP systolic 101–134; BP diastolic 42–81; PULSE 48–102; RESP 16–20; TEMP 97.2–98.9; O2SAT 97–100
[2024-02-23] MEDS: SERTRALINE 50 MG TAB PO SCH (08:33)
[2024-02-23] MEDS: hydroCHLOROthiazide 25 MG TAB PO SCH (08:33)
[2024-02-23] MEDS: METOPROLOL SUCCINATE 50 MG TABER PO SCH (08:34)
[2024-02-23 09:48] LABS: CALCIUM 8.9 mg/dL (8.5-10.1); CARBON DIOXIDE 25.1 mmol/L (21-32); CREATININE 0.8 mg/dL (0.6-1.3); POTASSIUM 4.1 mmol/L (3.5-5.1)
[2024-02-23 10:04] LABS: CHOL/HDL RATIO 2.1 (1-4.5); MAGNESIUM 2.1 mg/dL (1.8-2.4)
[2024-02-23 15:59] LABS: BASOPHILS % (AUTO) 0.6 % (0.0-2.0); EOSINOPHILS # (AUTO) 0.1 K/uL (0-0.4); EOSINOPHILS % (AUTO) 1.6 % (0.0-4.0); HEMATOCRIT 27.1 % (36-48); HEMOGLOBIN 7.5 g/dL (12.0-16.0); LYMPHOCYTES # (AUTO) 0.8 K/uL (2.5-16.5); LYMPHOCYTES % (AUTO) 11.7 % (20.5-51.1); MEAN CORPUSCULAR HEMOGLOBIN 20 pg (27-31); MEAN CORPUSCULAR HGB CONC 28 g/dL (33-37); MEAN CORPUSCULAR VOLUME 72.3 fL (80-94); MONOCYTES # (AUTO) 0.5 K/uL (0.8-1.0); MONOCYTES % (AUTO) 6.9 % (1.7-9.3); NEUTROPHILS # (AUTO) 5.5 K/uL (1.8-7.7); NEUTROPHILS % (AUTO) 79.2 % (42.2-75.2); PLATELET COUNT (AUTO) 193 K/uL (140-450); RED BLOOD CELL COUNT(AUTO) 3.75 MIL/uL (4.20-5.40); RED CELL DISTRIBUTION WIDTH 20.7 % (11.6-13.7)
[2024-02-23] MEDS: MEDS-TO-BEDS MC SCH (20:24)
[2024-02-24] VITALS (7 sets, daily range): BP systolic 96–121; BP diastolic 55–76; PULSE 61–79; RESP 16–18; TEMP 97.1–98.6; O2SAT 96–100
[2024-02-24 09:17] LABS: BASOPHILS # (AUTO) 0.1 K/uL (0.00-0.22); BASOPHILS % (AUTO) 1.2 % (0.0-2.0); EOSINOPHILS # (AUTO) 0.1 K/uL (0-0.4); EOSINOPHILS % (AUTO) 1.1 % (0.0-4.0); HEMATOCRIT 29.9 % (36-48); HEMOGLOBIN 8.5 g/dL (12.0-16.0); LYMPHOCYTES # (AUTO) 1.2 K/uL (2.5-16.5); LYMPHOCYTES % (AUTO) 14.2 % (20.5-51.1); MEAN CORPUSCULAR HEMOGLOBIN 20 pg (27-31); MEAN CORPUSCULAR HGB CONC 28 g/dL (33-37); MEAN CORPUSCULAR VOLUME 69.8 fL (80-94); MONOCYTES # (AUTO) 0.6 K/uL (0.8-1.0); MONOCYTES % (AUTO) 7.8 % (1.7-9.3); NEUTROPHILS # (AUTO) 6.2 K/uL (1.8-7.7); NEUTROPHILS % (AUTO) 75.7 % (42.2-75.2); PLATELET COUNT (AUTO) 228 K/uL (140-450); RED BLOOD CELL COUNT(AUTO) 4.28 MIL/uL (4.20-5.40); RED CELL DISTRIBUTION WIDTH 21.3 % (11.6-13.7); WHITE BLOOD COUNT (AUTO) 8.2 K/uL (4.8-10.8)
[2024-02-24 09:54] LABS: ALBUMIN 3.3 g/dL (3.4-5.0); ANION GAP 13.2 (8-16); CALCIUM 9.5 mg/dL (8.5-10.1); CARBON DIOXIDE 25.1 mmol/L (21-32); CREATININE 0.8 mg/dL (0.6-1.3); POTASSIUM 4.3 mmol/L (3.5-5.1); TOTAL BILIRUBIN 0.5 mg/dL (0.0-1.0); TOTAL PROTEIN, SERUM 7.9 g/dL (6.4-8.2)
[2024-02-24] MEDS ORDERED: MIRABULK PO (13:13)
== END 2024-02-24 15:15 | disposition home or self-care (01) | DRG 532 ==
LOC: MED 02:38 → MTU 08:56 → OBSVTOIN 08:59 → MMU 09:25 → MTU 12:00
PROVIDERS: ADMIT Hospitalist; ATTEND Hospitalist
PROC: 30233N1 Transfusion of Nonautologous Red Blood Cells into Peripheral Vein, Percutaneous Approach (ICD-10-PCS; principal; 2024-02-22)
DX: N95.0 Postmenopausal bleeding (principal); D62 Acute posthemorrhagic anemia; E66.9 Obesity, unspecified; I10 Essential (primary) hypertension; Z68.31 Body mass index [BMI] 31.0-31.9, adult; Z79.899 Other long term (current) drug therapy
CPT/HCPCS: 36415; 36430; 71045; 76856; 80048; 80053; 80076; 80305; 81001; 82150; 83540; 83690; 83735; 84484; 85025; 85610; 85730; 86886; 86900; 86901; 86920; 87081; 87086; 93005; 96374; 99285; J2405; P9016; Q0092; Q9967

== ENCOUNTER 2024-05-11 12:18 | Inpatient (IN) | payer OTHER ==
[~2024-05-11] VITALS: Ht 172.7 cm; Wt 90.7 kg
[~2024-05-11 12:18] MED LIST changes: +ACET-8905 PO; +DOCU-299 PO; +FERR-20 PO; -LISI20TA29 PO; +LISI40TA8 PO; +METO-498 PO; -METO100T14 PO; +MIRABULK PO
[2024-05-11 12:41] VITALS: BP 188/119; PULSE 82; RESP 22; O2SAT 97
[2024-05-11 13:15] LABS: BASOPHILS # (AUTO) 0.1 K/uL (0.00-0.22); BASOPHILS % (AUTO) 1.2 % (0.0-2.0); EOSINOPHILS # (AUTO) 0.1 K/uL (0-0.4); EOSINOPHILS % (AUTO) 0.8 % (0.0-4.0); HEMATOCRIT 24.8 % (36-48); HEMOGLOBIN 7.4 g/dL (12.0-16.0); LYMPHOCYTES # (AUTO) 1.5 K/uL (2.5-16.5); LYMPHOCYTES % (AUTO) 15.9 % (20.5-51.1); MEAN CORPUSCULAR HEMOGLOBIN 21 pg (27-31); MEAN CORPUSCULAR HGB CONC 30 g/dL (33-37); MEAN CORPUSCULAR VOLUME 71.5 fL (80-94); MONOCYTES # (AUTO) 0.6 K/uL (0.8-1.0); MONOCYTES % (AUTO) 6.1 % (1.7-9.3); NEUTROPHILS # (AUTO) 7.1 K/uL (1.8-7.7); PLATELET COUNT (AUTO) 469 K/uL (140-450); RED BLOOD CELL COUNT(AUTO) 3.47 MIL/uL (4.20-5.40); RED CELL DISTRIBUTION WIDTH 20.9 % (11.6-13.7); WHITE BLOOD COUNT (AUTO) 9.3 K/uL (4.8-10.8)
[2024-05-11 13:35] LABS: ANION GAP 10.3 (8-16); CALCIUM 8.8 mg/dL (8.5-10.1); CARBON DIOXIDE 27.8 mmol/L (21-32); CREATININE 0.8 mg/dL (0.6-1.3); POTASSIUM 4.1 mmol/L (3.5-5.1)
[2024-05-11 13:41] LABS: ALBUMIN 2.6 g/dL (3.4-5.0); BILIRUBIN,DIRECT 0.1 mg/dL (0.0-0.3); TOTAL BILIRUBIN 0.3 mg/dL (0.0-1.0); TOTAL PROTEIN, SERUM 7.6 g/dL (6.4-8.2)
[2024-05-11 14:23] LABS: APPEARANCE,URINE CLEAR (CLEAR); BILIRUBIN,URINE NEGATIVE (NEGATIVE); BLOOD, URINE NEGATIVE (NEGATIVE); COLOR,URINE YELLOW (YELLOW); LEUKOCYTE ESTERASE ,URINE NEGATIVE (NEGATIVE); NITRITE, URINE NEGATIVE (NEGATIVE); PH,URINE 6.5 (5.0-9.0); PROTEIN,URINE NEGATIVE (NEGATIVE); UGLUCOSE NEGATIVE (NEGATIVE); UROBILINOGEN,URINE 0.2 EU/dL (0.2 - 1)
[2024-05-11] MEDS: ONDANSETRON 4 MG/2 ML VIAL IVP ONE (14:26)
[2024-05-11] MEDS: KETOROLAC 30 MG/ML VIAL IVP ONE (14:29)
[2024-05-11] MEDS ORDERED: PIPERACILLIN/TAZOBACTAM 3.375 GM VIAL IV ONE (16:00)
[2024-05-11] MEDS: MORPHINE SULFATE 4 MG/ML SYR IVP ONE (16:02)
[2024-05-11] MEDS ORDERED: ONDANSETRON 4 MG/2 ML VIAL IVP PRN (16:25)
[2024-05-11] MEDS: PIPERACILLIN/TAZOBACTAM 3.375 GM in DEXTROSE 5% 50 ML IV ONE (16:45)
[2024-05-11] MEDS: DEXT 5% /NACL 0.9% 1,000 ML IV SCH (16:58)
[2024-05-11 18:05] VITALS: BP 139/78; PULSE 60; RESP 18; TEMP 98.2; O2SAT 100
[2024-05-11 19:00] VITALS: BP 122/70; PULSE 57; RESP 18; TEMP 97.7; O2SAT 100
[2024-05-11] MEDS: MORPHINE SULFATE 4 MG/ML SYR IVP PRN (19:23)
[2024-05-11] MEDS ORDERED: PIPERACILLIN/TAZOBACTAM 2.25 GM in DEXTROSE 5% 50 ML IV SCH (21:00)
[2024-05-12] MEDS: ALUMINUM HYD/MAG/SIMETHICONE 30 ML UDC PO SCH (00:05)
[2024-05-12] MEDS: PIPERACILLIN/TAZOBACTAM 3.375 GM in DEXTROSE 5% 50 ML IV SCH (00:07)
[2024-05-12 04:00] VITALS: BP 125/73; PULSE 60; RESP 18; TEMP 97.5; O2SAT 100
[2024-05-12 06:00] LABS: BASOPHILS # (AUTO) 0.1 K/uL (0.00-0.22); BASOPHILS % (AUTO) 1.6 % (0.0-2.0); EOSINOPHILS # (AUTO) 0.1 K/uL (0-0.4); EOSINOPHILS % (AUTO) 2.1 % (0.0-4.0); LYMPHOCYTES # (AUTO) 0.9 K/uL (2.5-16.5); MEAN CORPUSCULAR HEMOGLOBIN 22 pg (27-31); MEAN CORPUSCULAR HGB CONC 30 g/dL (33-37); MONOCYTES # (AUTO) 0.4 K/uL (0.8-1.0); NEUTROPHILS # (AUTO) 5.1 K/uL (1.8-7.7); NEUTROPHILS % (AUTO) 76.3 % (42.2-75.2); PLATELET COUNT (AUTO) 422 K/uL (140-450); RED BLOOD CELL COUNT(AUTO) 3.08 MIL/uL (4.20-5.40); RED CELL DISTRIBUTION WIDTH 20.3 % (11.6-13.7); WHITE BLOOD COUNT (AUTO) 6.6 K/uL (4.8-10.8)
[2024-05-12 06:18] LABS: HEMATOCRIT 22.2 % (36-48); HEMOGLOBIN 6.7 g/dL (12.0-16.0)
[2024-05-12 07:02] LABS: CALCIUM 8.6 mg/dL (8.5-10.1); CARBON DIOXIDE 29.1 mmol/L (21-32); CREATININE 0.8 mg/dL (0.6-1.3); POTASSIUM 4.1 mmol/L (3.5-5.1)
[2024-05-12 08:00] VITALS: BP 125/70; PULSE 65; RESP 18; TEMP 98.6; O2SAT 97
[2024-05-12] MEDS: PANTOPRAZOLE 40 MG INJ VIAL IVP SCH (10:06)
[2024-05-12 12:00] VITALS: BP 130/71; PULSE 65; RESP 18; TEMP 98.1; O2SAT 98
[2024-05-12 17:00] VITALS: BP 140/70; PULSE 72; RESP 18; TEMP 98.1; O2SAT 98
[2024-05-12 17:42] LABS: BASOPHILS # (AUTO) 0.1 K/uL (0.00-0.22); BASOPHILS % (AUTO) 1.7 % (0.0-2.0); EOSINOPHILS # (AUTO) 0.1 K/uL (0-0.4); EOSINOPHILS % (AUTO) 1.1 % (0.0-4.0); HEMATOCRIT 27.9 % (36-48); HEMOGLOBIN 8.3 g/dL (12.0-16.0); LYMPHOCYTES # (AUTO) 1.2 K/uL (2.5-16.5); LYMPHOCYTES % (AUTO) 20.2 % (20.5-51.1); MEAN CORPUSCULAR HEMOGLOBIN 22 pg (27-31); MEAN CORPUSCULAR HGB CONC 30 g/dL (33-37); MEAN CORPUSCULAR VOLUME 73.2 fL (80-94); MONOCYTES # (AUTO) 0.4 K/uL (0.8-1.0); MONOCYTES % (AUTO) 6.3 % (1.7-9.3); NEUTROPHILS # (AUTO) 4.1 K/uL (1.8-7.7); NEUTROPHILS % (AUTO) 70.7 % (42.2-75.2); PLATELET COUNT (AUTO) 496 K/uL (140-450); RED BLOOD CELL COUNT(AUTO) 3.81 MIL/uL (4.20-5.40); RED CELL DISTRIBUTION WIDTH 20.2 % (11.6-13.7); WHITE BLOOD COUNT (AUTO) 5.8 K/uL (4.8-10.8)
[2024-05-12 20:00] VITALS: BP 116/77; PULSE 65; RESP 18; TEMP 97.5; O2SAT 95
[2024-05-12] MEDS: MELATONIN 3 MG TAB PO PRN (20:40)
[2024-05-12] MEDS: MEDS-TO-BEDS MC SCH (21:00)
[2024-05-12] MEDS: HYDROcodone/APAP 5/325 MG 1 TAB TAB PO PRN (23:21)
[2024-05-13 04:00] VITALS: BP 137/67; PULSE 62; RESP 18; TEMP 97.2; O2SAT 100
[2024-05-13 05:52] LABS: BASOPHILS # (AUTO) 0.1 K/uL (0.00-0.22); BASOPHILS % (AUTO) 1.5 % (0.0-2.0); EOSINOPHILS # (AUTO) 0.1 K/uL (0-0.4); EOSINOPHILS % (AUTO) 3.1 % (0.0-4.0); HEMATOCRIT 25.2 % (36-48); HEMOGLOBIN 7.5 g/dL (12.0-16.0); LYMPHOCYTES # (AUTO) 0.9 K/uL (2.5-16.5); LYMPHOCYTES % (AUTO) 20.8 % (20.5-51.1); MEAN CORPUSCULAR HEMOGLOBIN 22 pg (27-31); MEAN CORPUSCULAR HGB CONC 30 g/dL (33-37); MEAN CORPUSCULAR VOLUME 72.8 fL (80-94); MONOCYTES # (AUTO) 0.4 K/uL (0.8-1.0); MONOCYTES % (AUTO) 8.5 % (1.7-9.3); NEUTROPHILS # (AUTO) 2.9 K/uL (1.8-7.7); NEUTROPHILS % (AUTO) 66.1 % (42.2-75.2); PLATELET COUNT (AUTO) 400 K/uL (140-450); RED BLOOD CELL COUNT(AUTO) 3.46 MIL/uL (4.20-5.40); RED CELL DISTRIBUTION WIDTH 20.4 % (11.6-13.7); WHITE BLOOD COUNT (AUTO) 4.4 K/uL (4.8-10.8)
[2024-05-13 05:55] LABS: ANION GAP 9.1 (8-16); CALCIUM 8.3 mg/dL (8.5-10.1); CARBON DIOXIDE 27.9 mmol/L (21-32); CREATININE 0.8 mg/dL (0.6-1.3)
[2024-05-13 08:00] VITALS: BP 143/80; PULSE 60; RESP 17; TEMP 97.4; O2SAT 98
[2024-05-13] MEDS: PANTOPRAZOLE 40 MG INJ VIAL IVP SCH (16:50)
[2024-05-13 20:48] VITALS: PULSE 80
[2024-05-13 20:50] VITALS: BP 125/67; PULSE 80; RESP 17; TEMP 97.4; O2SAT 98
[2024-05-13] MEDS: SODIUM FERRIC GLUCONATE 125 MG in NACL 0.9% 100 ML IV SCH (21:45)
[2024-05-14 04:00] VITALS: BP 126/64; PULSE 60; RESP 20; TEMP 97.1; O2SAT 100
[2024-05-14 05:16] LABS: BASOPHILS # (AUTO) 0.1 K/uL (0.00-0.22); BASOPHILS % (AUTO) 1.3 % (0.0-2.0); EOSINOPHILS # (AUTO) 0.2 K/uL (0-0.4); EOSINOPHILS % (AUTO) 4.3 % (0.0-4.0); HEMOGLOBIN 7.7 g/dL (12.0-16.0); LYMPHOCYTES # (AUTO) 0.9 K/uL (2.5-16.5); LYMPHOCYTES % (AUTO) 21.8 % (20.5-51.1); MEAN CORPUSCULAR HEMOGLOBIN 22 pg (27-31); MEAN CORPUSCULAR HGB CONC 30 g/dL (33-37); MEAN CORPUSCULAR VOLUME 72.7 fL (80-94); MONOCYTES # (AUTO) 0.4 K/uL (0.8-1.0); MONOCYTES % (AUTO) 10.4 % (1.7-9.3); NEUTROPHILS # (AUTO) 2.5 K/uL (1.8-7.7); NEUTROPHILS % (AUTO) 62.2 % (42.2-75.2); PLATELET COUNT (AUTO) 428 K/uL (140-450); RED BLOOD CELL COUNT(AUTO) 3.57 MIL/uL (4.20-5.40); RED CELL DISTRIBUTION WIDTH 19.7 % (11.6-13.7)
[2024-05-14 05:21] LABS: ANION GAP 8.5 (8-16); CALCIUM 8.3 mg/dL (8.5-10.1); CARBON DIOXIDE 28.5 mmol/L (21-32); CREATININE 0.8 mg/dL (0.6-1.3)
[2024-05-14 08:00] VITALS: PULSE 54; RESP 18; O2SAT 99
[2024-05-14] MEDS: phenoL 1.4% SPRAY 20 ML BTL MM PRN (08:19)
[2024-05-14 12:00] VITALS: BP 153/85; PULSE 74; RESP 18; TEMP 97.1; O2SAT 99
[2024-05-14] MEDS: bisacodyL 10 MG SUPP RC SCH (14:51)
[2024-05-14 20:00] VITALS: BP 129/75; PULSE 71; RESP 18; RESP 19; TEMP 97.4; O2SAT 96
[2024-05-15 04:00] VITALS: BP 131/59; PULSE 62; RESP 18; TEMP 96.5; O2SAT 98
[2024-05-15 05:23] LABS: BASOPHILS # (AUTO) 0.1 K/uL (0.00-0.22); BASOPHILS % (AUTO) 1.8 % (0.0-2.0); EOSINOPHILS # (AUTO) 0.3 K/uL (0-0.4); EOSINOPHILS % (AUTO) 6.9 % (0.0-4.0); HEMATOCRIT 26.4 % (36-48); LYMPHOCYTES # (AUTO) 1.1 K/uL (2.5-16.5); LYMPHOCYTES % (AUTO) 27.3 % (20.5-51.1); MEAN CORPUSCULAR HEMOGLOBIN 22 pg (27-31); MEAN CORPUSCULAR HGB CONC 30 g/dL (33-37); MEAN CORPUSCULAR VOLUME 72.7 fL (80-94); MONOCYTES # (AUTO) 0.4 K/uL (0.8-1.0); MONOCYTES % (AUTO) 10.1 % (1.7-9.3); NEUTROPHILS # (AUTO) 2.1 K/uL (1.8-7.7); NEUTROPHILS % (AUTO) 53.9 % (42.2-75.2); PLATELET COUNT (AUTO) 417 K/uL (140-450); RED BLOOD CELL COUNT(AUTO) 3.62 MIL/uL (4.20-5.40); RED CELL DISTRIBUTION WIDTH 20.2 % (11.6-13.7); WHITE BLOOD COUNT (AUTO) 3.9 K/uL (4.8-10.8)
[2024-05-15 05:34] LABS: ANION GAP 9.7 (8-16); CALCIUM 8.6 mg/dL (8.5-10.1); CREATININE 0.8 mg/dL (0.6-1.3); POTASSIUM 3.7 mmol/L (3.5-5.1)
[2024-05-15 08:00] VITALS: PULSE 60; PULSE 70; RESP 18; O2SAT 100
[2024-05-15 12:00] VITALS: BP 154/69; PULSE 56; RESP 18; TEMP 96.9; O2SAT 100
[2024-05-15 20:00] VITALS: BP 147/73; PULSE 55; RESP 20; TEMP 96.7; O2SAT 100; O2SAT 95
[2024-05-15 22:30] VITALS: PULSE 65; RESP 20; O2SAT 100
[2024-05-16 04:00] VITALS: BP 149/58; PULSE 54; RESP 20; TEMP 97.3; O2SAT 98
[2024-05-16 05:19] LABS: BASOPHILS % (AUTO) 0.2 % (0.0-2.0); EOSINOPHILS # (AUTO) 0.3 K/uL (0-0.4); EOSINOPHILS % (AUTO) 7.8 % (0.0-4.0); HEMATOCRIT 26.4 % (36-48); HEMOGLOBIN 7.8 g/dL (12.0-16.0); LYMPHOCYTES # (AUTO) 1.2 K/uL (2.5-16.5); LYMPHOCYTES % (AUTO) 28.4 % (20.5-51.1); MEAN CORPUSCULAR HEMOGLOBIN 22 pg (27-31); MEAN CORPUSCULAR VOLUME 73.8 fL (80-94); MONOCYTES # (AUTO) 0.4 K/uL (0.8-1.0); MONOCYTES % (AUTO) 8.6 % (1.7-9.3); NEUTROPHILS # (AUTO) 2.3 K/uL (1.8-7.7); PLATELET COUNT (AUTO) 401 K/uL (140-450); RED BLOOD CELL COUNT(AUTO) 3.57 MIL/uL (4.20-5.40); RED CELL DISTRIBUTION WIDTH 20.1 % (11.6-13.7); WHITE BLOOD COUNT (AUTO) 4.2 K/uL (4.8-10.8)
[2024-05-16 05:46] LABS: ANION GAP 12.8 (8-16); CALCIUM 8.3 mg/dL (8.5-10.1); CARBON DIOXIDE 23.4 mmol/L (21-32); CREATININE 0.9 mg/dL (0.6-1.3); POTASSIUM 4.2 mmol/L (3.5-5.1)
[2024-05-16 06:43] LABS: MEAN CORPUSCULAR HGB CONC 30 g/dL (33-37)
[2024-05-16 08:00] VITALS: PULSE 54; PULSE 60; RESP 18; O2SAT 97
[2024-05-16 12:00] VITALS: BP 128/56; PULSE 54; RESP 18; TEMP 97; O2SAT 97
[2024-05-16 20:00] VITALS: BP 164/92; PULSE 60; PULSE 75; RESP 18; TEMP 97.3; O2SAT 100
[2024-05-16] MEDS: SENNA 8.6 MG TAB PO SCH (20:01)
[2024-05-16] MEDS ORDERED: PANT40EC PO (22:23)
[2024-05-17 04:00] VITALS: BP 149/79; PULSE 74; RESP 18; TEMP 97.2; O2SAT 100
[2024-05-17 08:00] VITALS: PULSE 60; PULSE 75; RESP 18; O2SAT 100
[2024-05-17] MEDS: MIDAZOLAM 2 MG/2 ML VIAL ONE ×2 (09:55→09:58)
[2024-05-17] MEDS: fentaNYL citrate 0.05 MG/ML VIAL ONE ×2 (09:55→09:58)
[2024-05-17] MEDS: MIDAZOLAM 2 MG/2 ML VIAL IVP ONE (09:59)
[2024-05-17] MEDS: fentaNYL citrate 0.05 MG/ML VIAL IVP ONE (10:00)
[2024-05-17 16:00] VITALS: BP 128/79; PULSE 80; RESP 16; TEMP 98.1; O2SAT 98
[2024-05-17 20:00] VITALS: BP 135/86; PULSE 96; RESP 19; TEMP 97.7; O2SAT 96
[2024-05-18] MEDS: ACETAMINOPHEN 325 MG TAB PO PRN (06:12)
[2024-05-18 08:00] VITALS: PULSE 67; RESP 17; O2SAT 98
[2024-05-18 11:56] VITALS: BP 144/84; PULSE 67; RESP 17; TEMP 97.6
== END 2024-05-18 14:50 | disposition home or self-care (01) | DRG 241 ==
LOC: MED 12:18 → MMU 16:23
PROVIDERS: ADMIT Student in an Organized Health Care Education/Training Program; ATTEND Student in an Organized Health Care Education/Training Program
PROC: 30233N1 Transfusion of Nonautologous Red Blood Cells into Peripheral Vein, Percutaneous Approach (ICD-10-PCS; principal; 2024-05-12)
PROC: 0DB68ZX Excision of Stomach, Via Natural or Artificial Opening Endoscopic, Diagnostic (ICD-10-PCS; 2024-05-17 11:00)
DX: K25.5 Chronic or unspecified gastric ulcer with perforation (principal); E44.1 Mild protein-calorie malnutrition; D62 Acute posthemorrhagic anemia; E87.1 Hypo-osmolality and hyponatremia; E78.5 Hyperlipidemia, unspecified; K21.9 Gastro-esophageal reflux disease without esophagitis; E66.9 Obesity, unspecified; Z68.30 Body mass index [BMI] 30.0-30.9, adult; Z79.899 Other long term (current) drug therapy; Z88.8 Allergy status to other drugs, medicaments and biological substances; Z90.49 Acquired absence of other specified parts of digestive tract
CPT/HCPCS: 36415; 71045; 80048; 80076; 81003; 81025; 82728; 83540; 83605; 83690; 84703; 85025; 86677; 86886; 86900; 86901; 86920; 87040; 87081; 88305; 88312; 88313; 88342; 96365; 96375; 99291; J1885; J2250; J2270; J2405; J2470; J2543; J2916; J3010; J7060; P9016; Q9967